=== PATIENT | female | born 1960 | race Caucasian/White ===

== ENCOUNTER → 2020-01-18 08:15 | Outpatient (CLI) | payer OTHER, SELFPAY ==
--- NOTE | ~2020-01-18 | MM_ITS ---
EXAMINATION: MM screening pooja BI w ingrid HISTORY: Screening mammogram TECHNIQUE: Craniocaudal and mediolateral oblique 3-D tomosynthesis images were obtained and synthetic 2-D images were generated. CAD analysis was submitted and interpreted. COMPARISON: No prior mammogram is available for comparison at this institution. BREAST PARENCHYMAL COMPOSITION: There are scattered areas of fibroglandular density. FINDINGS: There is no evidence of suspicious mass, calcification, or architectural distortion to sugg est malignancy in either breast. There has been no suspicious interval change. IMPRESSION: 1. No mammographic evidence of malignancy. 2. Recommend routine screening mammography in one year. BI-RADS Category 1: Negative Reviewed, dictated and finalized at location A.
--- NOTE | ~2020-01-18 | DEXA_ITS ---
Bone Density Report Name: Michelle Juarez Age: 59 Sex: Female Ethnicity: White Date of : 1960 Indication: postmenopausal; screening for osteoporosis; Referring Provider: Nathan, Lori Study: Bone densitometry was performed. Exam Date: January 18, 2020 Accession number: [id number] Bone Density: Region BMD T-score Z-score Classification AP Spine (L1-L4) 0.946 -0.9 0.4 Normal Femoral Neck (Left) 0.683 -1.5 -0.3 Osteopenia Total Hip (Left) 0.834 -0.9 0.0 Normal Femoral Neck (Right) 0.681 -1.5 -0.3 Osteopenia Total Hip (Right) 0.793 -1.2 -0.4 Osteopenia Total Hip Mean 0.814 -1.1 -0.2 Osteopenia World Health Organization criteria for BMD impression classify patients as: Normal (T-score at or above -1.0), Osteopenia (T-score between -1.0 and -2.5), or Osteoporosis (T-score at or below -2.5). 10-year Fracture Risk(1): Major Osteoporotic Fracture 7.4% Hip Fracture 0.6% Reported Risk Factors: [place] (), Neck BMD=0.681, BMI=29.6 (1) FRAX(R) Version 3.08. Fracture probability calculated for an untreated patient. Fracture probability may be lower if the patient has received treatment. Clinical Information Provided by Patient: Has used the following medications: Vitamin D, Calcium Patient maximum height was 62.4 Menopause Age: 55 No regular weight bearing exercise Does not regularly consume dairy products Drinks caffeinated beverages Onset of menses at age 16 Number of children 2 Impression: The patient has low bone mass, based on the Left Femoral Neck T-score. The patient has an estimated ten-year risk of hip fracture of 0.6% and an estimated ten-year risk of major fracture of 7.4%, based on the WHO FRAX algorithm. Discussion: BONE DENSITY IS LOW AT ONE OR MORE SKELETAL SITES. This patient's lowest T-score is low at one or more skeletal sites. It meets the World Health Organization's (WHO) criteria for ?low bone mass? (T-score between -1.0 and -2.5). The patient's 10-year risk of fracture as calculated by FRAX is less than the threshold where pharmacological therapy is recommended by the National Osteoporosis Foundation (NOF). However, all treatment decisions require clinical judgment and consideration of individual patient factors, including patient preferences, comorbidities, previous drug use, risk factors not captured in the FRAX model (e.g., frailty, falls, vitamin D deficiency, increased bone turnover, interval significant decline in bone density) and possible under or overestimation of fracture risk by FRAX. The patient should follow a healthful lifestyle (good nutrition with adequate calcium and vitamin D, and appropriate weight-bearing exercise). Follow-Up: Consider repeating this study in 2 to 3 years to reassess this patient's status, or sooner if there is some new clinic
== END ==
PROVIDERS: Visit Provider Nurse Practitioner
DX: Z12.31 Encounter for screening mammogram for malignant neoplasm of breast (principal); Z78.0 Asymptomatic menopausal state; M85.89 Other specified disorders of bone density and structure, multiple sites
CPT/HCPCS: 77063; 77067; 77080

== ENCOUNTER 2020-01-29 08:24 | Emergency (ER) | payer OTHER, SELFPAY ==
[2020-01-29 08:33] VITALS: BP 114/69; PULSE 73; RESP 20; TEMP 36.5; O2SAT 100
--- NOTE | 2020-01-29 08:52 | ED.FEMALEGU ---
HPI - Female Genitourinary General Chief complaint: Urogenital-Female Stated complaint: blood in urine/pressure/burning Source: patient and RN notes reviewed Mode of arrival: ambulatory Limitations: no limitations History of Present Illness HPI Narrative: This is a 59 years old female presents to the office for an evaluation of possible UTI since yesterday. Symptoms began with urinary discomfort/pressure then it gets worse over night with urinary pain and blood tinged. Denies urinary discharge. NO treatment prior to arrival. Symptoms reminiscent her previous UTI about a year ago. Related Data Allergies Allergy/AdvReac Type Severity Reaction Status Date / Time venom-honey bee Allergy Unknown Verified 05/10/14 15:48 ibuprofen AdvReac Unknown Verified 02/18/15 13:02 Review of Systems Review of Systems: Narrative: CONSTITUTIONAL: Denies fever or feeling ill ENT: Denies congestion CARDIOVASCULAR: Denies chest pain RESPIRATORY: Denies cough GASTROINTESTINAL: Denies abdominal pain, nausea, vomiting GENITOURINARY: Reports urinary pain/pressure, blood tinged when she wipes SKIN: Denies rash MUSCULOSKELETAL: Denies acute back pain NEUROLOGIC: Denies lightheaded PMFSH Surgical History Surgical History H/O dilation and curettage Hx of gastric bypass Comments At time of signature, I agree with nursing past medical, surgical, social and family history. There is no relevant family history pertinent to the presenting complaint. Exam Narrative: Exam Narrative: GENERAL: This is a well-nourished, well-developed patient, in no apparent distress. CARDIOVASCULAR: Regular rate and rhythm without murmurs, gallops, or rubs. RESPIRATORY: Clear to auscultation. Breath sounds equal bilaterally. No wheezes, rales, or rhonchi. GASTROINTESTINAL: Abdomen soft, non-tender, nondistended. Bowel sounds are active. No hepato-splenomegaly, or palpable masses. No guarding. SKIN: warm, intact with no suspicious lesions or rash, good texture and turgor. NEURO: awake, alert, and oriented to person, place and time. There were no obvious focal neurologic abnormalities. Steady gait BACK: No flank tenderness. Marley Coma Scale Eye Opening: Spontaneous 4 [place] Coma Scale Motor: Obeys Commands 6 [place] Coma Scale Verbal: Oriented 5 Course Vital Signs Vital signs: Vital Signs Temperature 97.7 F 01/29/20 08:33 Pulse Rate 73 01/29/20 08:33 Respiratory Rate 20 01/29/20 08:33 Blood Pressure 114/69 01/29/20 08:33 Pulse Oximetry 100 01/29/20 08:33 Temperature 97.7 F 01/29/20 08:33 Pulse Rate 73 01/29/20 08:33 Respiratory Rate 20 01/29/20 08:33 Blood Pressure 114/69 01/29/20 08:33 Pulse Oximetry 100 01/29/20 08:33 MDM - Female Genitourinary MDM Narrative Medical decision making narrative: Discharge instructions reviewed with patient, as well as provided in writing per nursing staff. The instructions also include specific and strict return/GO TO THE ER as well as f/u information. All questions have been answered, and the patient deny any further questions with discharge and discharge plan. Differential Diagnosis Differential diagnosis: Likely urinary tract infection, bacterial vaginosis, cervicitis, ovarian cyst, vaginitis, cystitis and dysmenorrhea Medical Records Attestation: I reviewed the patient's medical records. Lab Data Attestation: I reviewed the patient's lab results. Labs: Urine Glucose Negative Reference Range: Negative Urine Bilirubin Negative Reference Range: Negative Urine Ketone Negative Reference Range: Negative Urine Specific [place] 1.020 Reference Range:1.001-1.035 Urine Blood 2+ Reference Range: Negative * * Urine pH 7.5 Reference Range: 5
== END 2020-01-29 09:08 | disposition home or self-care (01) ==
PROVIDERS: Emergency Provider Nurse Practitioner
DX: R30.0 Dysuria (principal); R31.9 Hematuria, unspecified; Z98.84 Bariatric surgery status
CPT/HCPCS: 81003; 87077; 87086; 87088; 87186; 99213; G0463

== ENCOUNTER 2020-02-27 08:04 | Emergency (ER) | payer OTHER, SELFPAY ==
[2020-02-27 08:22] VITALS: BP 130/67; PULSE 77; RESP 20; TEMP 36.8; O2SAT 96
--- NOTE | 2020-02-27 08:22 | ED.SKABFB ---
HPI - Skin/Abscess/Foreign Bdy General Chief complaint: Skin/Abscess/Foreign Body Stated complaint: rash on arms and face Time Seen by Provider: 02/27/20 08:30 Source: patient and RN notes reviewed Mode of arrival: ambulatory Limitations: no limitations History of Present Illness HPI narrative: 59-year-old female presents with concern for itchy rash on her arms that has spread to her face. 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 She reports similar rash last year. She reports she has been using triamcinolone cream with no relief. She reports she daily Zyrtec with no relief. complaint: rash Related Data Allergies Allergy/AdvReac Type Severity Reaction Status Date / Time venom-honey bee Allergy Unknown Unknown Verified 02/27/20 08:31 ibuprofen AdvReac Unknown Other Verified 02/27/20 08:31 Review of Systems Review of Systems: Narrative: CONSTITUTIONAL: Denies malaise, chills, sweats, or fever. EYES: Denies visual changes, redness ENT: Denies rhinorrhea, congestion, sinus pain, otalgia or sore throat. CARDIOVASCULAR: Denies chest pain, palpitations RESPIRATORY: Denies cough or dyspnea. GASTROINTESTINAL: Denies abdominal pain, nausea, vomiting, diarrhea SKIN: Reports itchy, raised rash on arms and face MUSCULOSKELETAL: Denies myalgia. NEUROLOGIC: Denies headache. All systems reviewed & are unremarkable except as noted in HPI and below PMFSH Comments At time of signature, agree with nursing past medical, surgical, social and family history. There is no relevant family history pertinent to the presenting complaint Exam Narrative: Exam Narrative: GENERAL: Well-appearing, well-nourished, and in no acute distress. HEAD: Normocephalic, atraumatic. EYES: PERRLA, conjunctivae clear ENT: Nares clear. Mucous membranes moist. Oropharynx without edema, erythema or lesions. Tonsils not enlarged and without exudate. NECK: Supple. CHEST: No respiratory distress. Clear to auscultation. No bony deformities, no asymmetry. Speaks in full sentences. HEART: Regular rate and rhythm. No murmur heard. EXTREMITIES: Grossly normal range of motion. No edema. SKIN: Warm, dry. Fine pink papular rash noted to bilateral forearms, skin colored papules noted to bilateral cheeks, no other rash noted. NEURO: Alert and oriented x3. PSYCH: Normal mood and affect Course Course Emergency Course: Patient is aware of diagnosis, understands and agrees to treatment plan. Anticipatory guidance given. Patient agrees to follow-up as directed and is aware of reasons to seek care at the emergency department. Portions of this record may have been created with voice recognition software Vital Signs Vital signs: Vital Signs Temperature 98.2 F 02/27/20 08:22 Pulse Rate 77 02/27/20 08:22 Respiratory Rate 20 02/27/20 08:22 Blood Pressure 130/67 02/27/20 08:22 Pulse Oximetry 96 02/27/20 08:22 Temperature 98.2 F 02/27/20 08:22 Pulse Rate 77 02/27/20 08:22 Respiratory Rate 20 02/27/20 08:22 Blood Pressure 130/67 02/27/20 08:22 Pulse Oximetry 96 02/27/20 08:22 Reviewed. Patient has been instructed to follow up with her primary care provider within the next week regarding her elevated blood pressure today. MDM - Skin/Abscess/Foreign Bdy MDM Narrative Medical decision making narrative: Does not appear at this time to be erythema multiforme, bullous, SJS, TEN; no evidence at this time to suggest RMSF, endocarditis or Lyme disease; patient looks well, nontoxic and is tolerating oral intake; no neurologic signs or symptoms; no headache, photophobia or neck pain; afebrile; appropriate for initial outpatient treatment; discussed the importance of follow-up, patient agrees; question, viral exanthema, contact dermatitis, allergic dermatitis, eczema, urticaria, drug reaction. No soft palate or uvula edema, no tongue, lip edema or other mucosal involvement, no respiratory compromi
== END 2020-02-27 08:43 | disposition home or self-care (01) ==
PROVIDERS: Emergency Provider Nurse Practitioner
DX: R21 Rash and other nonspecific skin eruption (principal); Z98.84 Bariatric surgery status; R03.0 Elevated blood-pressure reading, without diagnosis of hypertension
CPT/HCPCS: 99213; G0463

== ENCOUNTER 2020-10-29 14:39 | Emergency (ER) | payer OTHER, SELFPAY ==
[2020-10-29 14:54] VITALS: BP 124/74; PULSE 72; RESP 16; TEMP 36.5; O2SAT 100
--- NOTE | 2020-10-29 15:18 | ED.GENADULT ---
HPI - General Adult General Chief complaint: Skin/Abscess/Foreign Body Stated complaint: rash allover Time Seen by Provider: 10/29/20 15:18 Source: patient Mode of arrival: ambulatory Limitations: no limitations History of Present Illness HPI narrative: 51-year-old female patient presents to the [facility] with complaints of a rash for the past week. Patient states it mostly is on her neck but noticed that she has had some itching to bilateral legs and arms. Patient states she has tried Benadryl along with lotion but continues to have a rash. Denies any new soaps, lotions or detergents. Denies any chest pain, shortness of breath. Related Data Allergies Allergy/AdvReac Type Severity Reaction Status Date / Time venom-honey bee Allergy Unknown Unknown Verified 10/29/20 15:08 ibuprofen AdvReac Unknown Other Verified 02/27/20 08:31 Review of Systems Review of Systems: Narrative: CONSTITUTIONAL: Denies fever, chills, or sweats. EYES: Denies visual changes, redness, or discharge. ENT: Denies rhinorrhea, congestion, sore throat, or otalgia. CARDIOVASCULAR: Denies chest pain, palpitations, or edema. RESPIRATORY: Denies cough or dyspnea. GASTROINTESTINAL: Denies abdominal pain, nausea, vomiting, or diarrhea. GENITOURINARY: Denies dysuria or hematuria. SKIN: Positive rash with itching to neck and chest, bilateral legs and bilateral arms x1 week MUSCULOSKELETAL: Denies back pain, joint pain, or myalgia. NEUROLOGIC: Denies headache, numbness, or weakness. PSYCHIATRIC: Denies anxiety or depression. PMFSH Surgical History Surgical History H/O dilation and curettage Hx of gastric bypass Comments At the time of my signature I agree with nursing past medical history, surgical, social, and family history. There is no relevant family history pertinent to the presenting complaint. Exam Narrative: Exam Narrative: GENERAL: Well-appearing, well-nourished, and in no acute distress. HEAD: Normocephalic, atraumatic. EYES: PERRLA and EOMI. ENT: Nares clear, no rhinorrhea or epistaxis. Mucous membranes moist. NECK: Supple. No lymphadenopathy CHEST: Clear to auscultation. No respiratory distress. HEART: Regular rate and rhythm. No murmur heard. Normal peripheral pulses. ABDOMEN: Soft, nontender, nondistended, normal active bowel sounds. EXTREMITIES: Normal range of motion. No edema. SKIN: Warm, dry, patient does have a erythemic rash noted to the chest the next area but no obvious warmth present. No obvious areas of discharge no obvious raised areas. Patient has rash to bilateral upper lower extremities with flat macules that are very small with erythema but no no base noted. NEURO: No focal deficits. Alert and oriented x3. Course Vital Signs Vital signs: Vital Signs Temperature 36.5 C 10/29/20 14:54 Pulse Rate 72 10/29/20 14:54 Respiratory Rate 16 10/29/20 14:54 Blood Pressure 124/74 10/29/20 14:54 Pulse Oximetry 100 10/29/20 14:54 Temperature 36.5 C 10/29/20 14:54 Pulse Rate 72 10/29/20 14:54 Respiratory Rate 16 10/29/20 14:54 Blood Pressure 124/74 10/29/20 14:54 Pulse Oximetry 100 10/29/20 14:54 Vital signs reviewed Medical Decision Making Differential Diagnosis Differential Diagnosis: Differential diagnosis: Contact dermatitis, poison kai, poison sumac, psoriasis, eczema, allergic reaction, drug reaction, scabies, tinea syphilis, lung disease, viral exanthema, pityriasis, erythema multiforme. Discussed with patient that since she has had this for a week and has tried Benadryl without much relief we will go ahead and try her put her on a taper of steroids to see if this helps with the rash. Patient verbalized understanding denies any other questions or concerns at this time. Vital Signs Vital Signs: Vital Signs Temperature 36.5 C 10/29/20 14:54 Pulse Rate 72 10/29/20 14:54 Respiratory Rate 16 10/29/20 14:54 Blood Pressure 124/74 0
== END 2020-10-29 15:40 | disposition home or self-care (01) ==
PROVIDERS: Emergency Provider Nurse Practitioner Family
DX: R21 Rash and other nonspecific skin eruption (principal); Z98.84 Bariatric surgery status
CPT/HCPCS: 99213; G0463

== ENCOUNTER → 2021-04-02 10:32 | Outpatient (CLI) | payer OTHER, SELFPAY ==
--- NOTE | ~2021-04-02 | MM_ITS ---
EXAMINATION: MM screening pooja BI w ingrid HISTORY: Screening mammogram TECHNIQUE: Craniocaudal and mediolateral oblique 3-D tomosynthesis images were obtained and synthetic 2-D images were generated. CAD analysis was submitted and interpreted. COMPARISON: 01/18/2020 BREAST PARENCHYMAL COMPOSITION: There are scattered areas of fibroglandular density. FINDINGS: There is no evidence of suspicious mass, calcification, or architectural distortion to sugg est malignancy in either breast. There has been no suspicious interval change. IMPRESSION: 1. No mammographic evidence of malignancy. 2. Recommend routine screening mammography in one year. BI-RADS Category 1: Negative Reviewed, dictated and finalized at location A.
== END ==
PROVIDERS: Visit Provider Nurse Practitioner
DX: Z12.31 Encounter for screening mammogram for malignant neoplasm of breast (principal)
CPT/HCPCS: 77063; 77067

== ENCOUNTER 2021-09-11 08:01 | Outpatient (CLI) | payer OTHER, SELFPAY ==
[2021-09-11 08:25] LABS: Hematocrit 43.7 % (37.0-47.0); Hemoglobin 14.2 g/dL (12.0-15.0); Mean Corpuscular HGB Conc 32.5 g/dl (32-36); Mean Corpuscular Hemoglobin 27.8 pg (26-34); Mean Corpuscular Volume 85.7 fl (80-100); Mean Platelet Volume 10.5 fl (7.4-10.4); Platelet Count Result 211 k/mm3 (150-375); White Blood Count 4.1 K/mm3 (4.5-10.0)
[2021-09-11 08:39] LABS: Albumin Level 4.1 g/dL (3.5-5.1); Anion Gap 4 mmol/L (8-16); Blood Urea Nitrogen 14 mg/dL (7-17); Calcium 9.5 mg/dL (8.4-10.2); Carbon Dioxide 31 mmol/L (22-30); Chloride 102 mmol/L (98-107); Estimated Glomerular Filt Rate > 60; Glucose 96 mg/dL (65-110); Potassium 4.4 mmol/L (3.4-5.0); Sodium 137 mmol/L (137-145)
[2021-09-11 08:46] LABS: Iron 182 ug/dL (37-170)
[2021-09-11 08:47] LABS: Prealbumin 22.2 mg/dL (17.6-36.0)
[2021-09-18 10:16] LABS: Vitamin B1 15 nmol/L (8-30)
== END 2021-09-11 08:02 | disposition home or self-care (01) ==
LOC: ANHLAB 08:03
PROVIDERS: Visit Provider Surgery Plastic and Reconstructive Surgery
DX: Z01.818 Encounter for other preprocedural examination (principal)
CPT/HCPCS: 36415; 80048; 82040; 83540; 84134; 84425; 85027

== ENCOUNTER 2021-10-11 09:26 | Outpatient (CLI) | payer OTHER, SELFPAY ==
--- NOTE | 2021-10-11 10:00 | ECG_ITS ---
Measurements Intervals [place] Rate: 59 P: 69 NH: 175 QRS: 40 QRSD: 85 T: 71 QT: 382 QTc: 378 Interpretive Statements SINUS BRADYCARDIA BASELINE ARTIFACT- I, II, III, AVR, AVL, AVF BORDERLINE ECG Electronically Signed On 10-11-2021 16:49:49 [employer] by Franco Campoverde D.O.
== END 2021-10-11 09:27 | disposition home or self-care (01) ==
LOC: ANHSURGERY 09:30
PROVIDERS: PCP Internal Medicine; Visit Provider Surgery Plastic and Reconstructive Surgery
DX: Z41.9 Encounter for procedure for purposes other than remedying health state, unspecified (principal); Z01.818 Encounter for other preprocedural examination; R94.31 Abnormal electrocardiogram [ECG] [EKG]
CPT/HCPCS: 93005

== ENCOUNTER 2021-10-12 00:14 | Day surgery (SDC) | payer OTHER, SELFPAY ==
[2021-10-04 15:08] VITALS: BMI 28.3
--- NOTE | 2021-10-04 15:23 | PC.NURSE ---
Report to the Outpatient Waiting Room, entrance under the green pavilion located off [facility], at time 8:30 on date 10/12/21. OR Time: 10:30. - You and your visitor will be asked a series of questions to screen for COVID 19 for your protection. - A mask is required within the hospital. - Only one visitor is allowed at this time. Patient visitors will be guided where to wait when not with patient. Preoperative COVID Testing Requirements: No COVID Test needed if: (proof is required; if not received patient will have Rapid Test prior to entry) - Patient has received COVID Vaccine at least 14 days prior to procedure date or - Patient has positive COVID test result within last 90 days of surgery date. COVID Test needed if above criteria is not met If not COVID vaccinated a COVID test must be conducted within 72 hours of surgery and patient is asked to isolate self from time of testing until procedure. You will go to the [facility] for your COVID testing. The [facility] site is located at the corner of [address] [facility]. You will only be called if COVID results are positive and your surgeon may reschedule your elective surgery date. Patients may have clear liquids (water, carbonated beverages, clear teas, apple juice) until 3 hours prior to surgery with a maximum of 20 ounces. - No food from midnight until time of surgery - Infants may have breast milk until 4 hours before surgery, infant formula 6 hours prior to surgery. - Children will be allowed to drink immediately following surgery. If applicable, please bring a bottle or sippy cup to assist with drinking. Juice, water, soda, and popsicles are readily available. For infants on formula, please bring formula the day of surgery. Pacifiers are allowed. Take the following medications with a SIP of water the morning of surgery: NONE Medications to discontinue per physician: VITAMINS/SUPPLEMENTS Date to take last dose: 10/08/21 Please no make-up, nail bulgarian, hairspray, perfume, deodorant, or body powder the day of surgery. No jewelry (including any body piercings) or valuables the day of surgery, leave them at home. Please take a shower or bath the night before, or the morning of, surgery with an antibacterial soap. Wear comfortable, loose fitting clothing. Children are encouraged to wear pajamas. - Jewelry must be removed prior to entering the operating room. Rings and piercings that are not removed may be cut off. - The hospital will not accept responsibility for valuables. - Please leave all valuables, including medications, at home the day of surgery. If you are going home after surgery, a licensed local flatbed driver must drive you home. - NO public transportation without another adult. - We recommend that an adult stay with you for 24 hours following discharge. - We also recommend that you do not drive, make important decision, drink alcoholic beverages, or take any drugs that were not prescribed by your health care provider for at least 24 hours after your discharge time. For Pediatric surgeries, we recommend two adults accompany the child home (only one inside the building at this time). Follow any additional instructions given to you from your surgeon. Telephone instructions given to GOPI RUTH and asked if any additional questions and then verbalized understanding. Patient advised to call surgeon office or pre surgery nurse liaison [phone] if any additional questions.
[2021-10-12] VITALS (9 sets, daily range): BP systolic 139–176; BP diastolic 69–93; PULSE 59–68; RESP 9–18; TEMP 36.4–36.6; O2SAT 100
[2021-10-12] MEDS: LACTATED RINGERS 1,000 ML 30 ML IV CONT ×3 (09:15→15:39)
[2021-10-12 09:17] LABS: Urine Cotinine NEGATIVE
--- NOTE | 2021-10-12 09:38 | WPDANESEPPF ---
Anes - Initial Pre Proc Eval Procedure: Operation Date: 10/12/21 10:30 Proposed Procedures p Bilateral Brachioplasty, - Mumtaz Anderson MD s Bilateral Medial Thigh Lift with Bilateral Lateral Thigh Liposuction - Mumtaz Anderson MD Date/Time: 10/12/21 09:38 Surgeon: Mumtaz Anderson MD Pre Op Diagnosis: skin laxity Patient Data Age: 60 Gender: F Height: 1.57 m Weight: 70.31 kg Allergies Allergy/AdvReac Type Severity Reaction Status Date / Time venom-honey bee Allergy Unknown Unknown Verified 10/04/21 15:04 adhesive AdvReac Mild Itching Verified 10/04/21 15:04 ibuprofen AdvReac Unknown Other Verified 10/04/21 15:04 Home Medications Medication Instructions Recorded Confirmed Type docusate sodium 100 mg capsule 100 mg PO DAILY #14 cap 09/27/21 10/04/21 Rx ondansetron HCl 4 mg tablet 4 mg PO Q8H #21 tablet 09/27/21 10/04/21 Rx oxycodone-acetaminophen 5 mg-325 1 tablet PO Q6H PRN #30 tablet 09/29/21 10/04/21 Rx mg tablet cholecalciferol (vitamin D3) 125 mcg PO DAILY 10/04/21 10/04/21 History [Vitamin D3] ferrous sulfate [Iron (ferrous 325 mg PO DAILY 10/04/21 10/04/21 History sulfate)] Laboratory Tests 10/12/21 08:53 Cotinine Negative Patient hx anesthesia problems: none Family hx anesthesia problems: none Results Review: All pre-operative results and documents have been reviewed as part of the pre-operative evaluation. [facility] Surgical History Surgical History H/O dilation and curettage Hx of gastric bypass Social History Social History Smoking status: Unknown if ever smoked Alcohol intake: never Alcohol use details: 1-2 TIMES/YEAR Substance use: never Substance use type: does not use Living arrangements: with family Spiritual care concerns: No Anes - Eval Final PreProcedure Day of Procedure 10/12/21 09:38 Patient weight: overweight Heart: regular rate and rhythm Lungs: clear to auscultation Airway: Mallampati scale class II Neurological: alert and oriented Last oral intake: >/= 8 hours ASA classification: II Emergent: no Anesthetic plan: proceed Anesthesia type and monitoring: general ETT and standard monitoring Results Review: All pre-operative results and documents have been reviewed as part of the pre-operative evaluation. Informed Consent: The patient's anesthetic plan and its attendant risks and benefits were discussed with the patient/family/POA. Questions were solicited and answers provided to the satisfaction of the patient/family/POA.
--- NOTE | 2021-10-12 09:46 | WPDHPUPDATE1 ---
History and Physical Update Update Date/Time: 10/12/21 09:46 History and Physical has been reviewed, including an updated exam of the patient. There are NO changes in the patient's condition. Risks, benefits, and alternatives have been discussed and questions answered. Patient agrees to proceed with procedure.
[2021-10-12] MEDS: TRANEXAMIC ACID 1,000MG/ISO100 1,000 MG/100 ML BAG 200 MG IVPB (10:00)
[2021-10-12] MEDS: SCOPOLAMINE 1.5 MG PATCH TRANSDERM (10:15)
--- NOTE | 2021-10-12 10:18 | P.OP_ITS ---
Procedure Note - Detailed Date of Procedure 10/12/21 Pre-op Diagnosis skin laxity Post-op Diagnosis same Procedure Performed 1. Bilateral brachioplasty 2. Bilateral medial thigh lift 3. Bilateral lateral thigh (saddlebag) suction lipectomy Surgeon Mumtaz Anderson MD Anesthesia general Findings 1275 suction lipectomy lateral thighs (total bilateral) 1500 suction lipectomy thighs (total bilateral) 400 suction lipectomy arms (total bilateral) Description of Procedure Preoperatively the risks, benefits, alternatives were discussed in extensive detail. I wanted her to be very realistic about the risks involved as well as expectations. Made sure answered all of her questions to her satisfaction. Consent was obtained. She was marked in the preoperative holding area with her verification. She was taken to the operating room placed supine on the operating room table. Anesthesia was provided by anesthesiology and she was prepped and draped in the standard sterile fashion. Surgical time-out was taken. First proceeded with the thighs. Stab incicions were made and I tumesced the planned suction lipectomy site as well as along the planned resection site for medial thigh lift. Once adequate time for hemostasis I proceeded with suction lipectomy based on S.A.F.E. technique to the saddlebag region with a 5mm basket cannula.. I then proceeded the medial thigh lift. I completely de-fatted the planned resection site and then proceeded with strip avulsion technique from proximal to distal in a close as you go fashion. I closed with 2-0 Stratafix followed by 3-0 Stratafix in a running subcuticular 4- 0 Monocryl and steri strips. I then proceed to brachioplasty. Stab incicions were made and I tumesced. Suction lipectomy was utilized I completely de-fatted the planned resection site and then proceeded with strip avulsion technique from proximal to distal in a close as you go fashion. I closed with 2-0 Stratafix followed by 3-0 Stratafix in a running subcuticular 4-0 Monocryl and steri strips. She was awoke and taken to the PACU without difficulty. All instrument sponge counts were correct at the end of the case. Estimated Blood Loss 30 Drains No Packing No Pathology none sent Complications No immediate complications Condition stable Disposition PACU
[2021-10-12] MEDS: LACTATED RINGERS IRRIG 1,000 ML, LIDOCAINE HCL 1% LOCAL INJ 50 ML, EPINEPHrine HCL INJ ... INFILTRATE (10:30)
[2021-10-12] MEDS: ceFAZolin 2 GM/D5W 50 ML 2 GM/50 ML BAG IVPB (10:30)
[2021-10-12] MEDS: ceFAZolin SODIUM 1 GM VIAL IV PUSH (14:23)
[2021-10-12] MEDS: ONDANSETRON INJ 4 MG/2 ML VIAL IV PUSH (16:33)
[2021-10-12] MEDS: diphenhydrAMINE HCl INJ 50 MG/ML VIAL 25 MG IV PUSH (16:46)
== END 2021-10-12 17:57 | disposition home or self-care (01) ==
PROVIDERS: PCP Internal Medicine; Visit Provider Surgery Plastic and Reconstructive Surgery
PROC: (CPT 15836; principal; 2021-10-12 10:30)
PROC: (CPT 15832; 2021-10-12 10:30)
DX: Z41.1 Encounter for cosmetic surgery (principal); L57.4 Cutis laxa senilis; Z98.84 Bariatric surgery status; Z79.899 Other long term (current) drug therapy
CPT/HCPCS: 15879; 15836; 15832; 15878; 80307; A9270; J0171; J0690; J1100; J1170; J1200; J2250; J2405; J2704; J3010; J7120

== ENCOUNTER → 2022-10-31 15:01 | Outpatient (CLI) | payer OTHER, SELFPAY ==
--- NOTE | ~2022-10-31 | US_ITS ---
Thyroid ultrasound. Clinical History: Enlarged thyroid gland COMPARISON: 12/03/2018 Findings: Real-time sonography of the thyroid gland was performed. The right lobe measures 5.6 x 2.3 x 1.9 cm. The left lobe measures 5.8 x 2.0 x 1.4 cm. The isthmus is 5 mm in AP diameter. There is a 2.6 x 1.5 x 1.5 cm isoechoic solid nodule at the right mid to lower pole. There is a 1.8 x 1.3 x 1.8 cm solid nodule at the left mid to lower pole, somewhat heterogeneous, largely hyperechoic . There is an additional 1.3 x 1.5 cm left lower pole nodule which is largely cystic in nature. There is a 0.5 cm nodule, hypoechoic, in the isthmus on the left side. Impression: Bilateral thyroid nodules, which overall are probably without significant interval change since prior exam. Stability over this time interval is compatible with benignity. Reviewed, dictated and finalized at [facility]. CUTTER Impression: Bilateral thyroid nodules, which overall are probably without significant inter [place] change since prior exam. Stability over this time interval is compatible wi th benignity.
== END ==
PROVIDERS: PCP Obstetrics & Gynecology Gynecology; Visit Provider Obstetrics & Gynecology Gynecology
DX: E04.2 Nontoxic multinodular goiter (principal)
CPT/HCPCS: 76536

== ENCOUNTER 2023-11-16 07:38 | Outpatient (CLI) | payer OTHER, SELFPAY ==
[2023-11-16 19:48] LABS: Free T4 Free Thyroxine 1.23 ng/mL (0.78-2.19); Vitamin D 25 Hydroxy 68.4 ng/mL
== END 2023-11-16 07:39 | disposition home or self-care (01) ==
LOC: ANHASCLAB 07:40
PROVIDERS: PCP Obstetrics & Gynecology Gynecology; Visit Provider Nurse Practitioner
DX: E55.9 Vitamin D deficiency, unspecified (principal); E07.9 Disorder of thyroid, unspecified
CPT/HCPCS: 36415; 82306; 82607; 84439; 84443

== ENCOUNTER 2024-11-25 12:48 | Outpatient (CLI) | payer OTHER, SELFPAY ==
--- NOTE | ~2024-11-25 | MM_ITS ---
EXAMINATION: MM screening pooja BI w ingrid HISTORY: Screening TECHNIQUE: Craniocaudal and mediolateral oblique 3-D tomosynthesis images were obtained and synthetic 2-D images were generated. CAD analysis was submitted and interpreted. COMPARISON: Comparison to multiple prior studies sequentially, with oldest reviewed study dated 01/2020. BREAST PARENCHYMAL COMPOSITION: Not dense: There are scattered areas of fibroglandular density. FINDINGS: There are developing asymmetries in the upper inner quadrant of the right breast posteriorl y. Left breast is stable without evidence for malignancy. IMPRESSION: 1. Developing right breast asymmetries. 2. Additional mammographic views and possible breast ultrasound are recommended. BI-RADS Category 0: Incomplete: Needs additional imaging evaluation. Reviewed, dictated and finalized at location B. TRICAL LOGGING ENGINEER IMPRESSION: 1. Developing right breast asymmetries. 2. Additional mammographic views and possible breast ultrasound are recommended . BI-RADS Category 0: Incomplete: Needs additional imaging evaluation.
--- NOTE | ~2024-11-25 | DEXA_ITS ---
Bone Density Report Name: GOPI RUTH Age: 64 Sex: Female Ethnicity: White Date of : 1960 Indication: postmenopausal; screening for osteoporosis; Referring Provider: Marnie Cowan Study: Bone densitometry was performed. Exam Date: November 25, 2024 Accession number: [id number] Bone Density: Region BMD T-score Z-score Classification AP Spine(L1-L4) 0.906 -1.3 0.3 Osteopenia Femoral Neck (Left) 0.684 -1.5 -0.1 Osteopenia Total Hip (Left) 0.820 -1.0 0.1 Normal Femoral Neck (Right) 0.698 -1.4 0.1 Osteopenia Total Hip (Right) 0.828 -0.9 0.2 Normal Femoral Neck Mean 0.691 -1.4 0.0 Osteopenia Total Hip Mean 0.824 -1.0 0.1 Normal World Health Organization criteria for BMD impression classify patients as: Normal (T-score at or above -1.0), Osteopenia (T-score between -1.0 and -2.5), or Osteoporosis (T-score at or below -2.5). 10-year Fracture Risk(1): Major Osteoporotic Fracture 8.1% Hip Fracture 0.7% Reported Risk Factors: [place] (), Neck BMD=0.684, BMI=30.5 (1) FRAX(R) Version 3.08. Fracture probability calculated for an untreated patient. Fracture probability may be lower if the patient has received treatment. Clinical Information Provided by Patient: Has used the following medications: Vitamin D Patient maximum height was 62 Menopause Age: 51 No regular weight bearing exercise Does not regularly consume dairy products Drinks caffeinated beverages Onset of menses at age 16 Number of children 2 Impression: The patient has low bone mass, based on the Left Femoral Neck T-score. Discussion: BONE DENSITY IS LOW AT ONE OR MORE SKELETAL SITES. This patient's lowest T-score is low at one or more skeletal sites. It meets the World Health Organization's (WHO) criteria for ?low bone mass? (T-score between -1.0 and -2.5). The patient's 10-year risk of fracture as calculated by FRAX is less than the threshold where pharmacological therapy is recommended by the National Osteoporosis Foundation (NOF). However, all treatment decisions require clinical judgment and consideration of individual patient factors, including patient preferences, comorbidities, previous drug use, risk factors not captured in the FRAX model (e.g., frailty, falls, vitamin D deficiency, increased bone turnover, interval significant decline in bone density) and possible under or overestimation of fracture risk by FRAX. The patient should follow a healthful lifestyle (good nutrition with adequate calcium and vitamin D, and appropriate weight-bearing exercise). Follow-Up: Consider repeating this study in 2 to 3 years to reassess this patient's status, or sooner if there is some new clinical indication. Reported by: TANIKA on 11/25/2024 1:18:00 PM. Reviewed, dictated and finalized at location A.
--- OUTSIDE RECORDS SUMMARY | 2024-11-25 13:02 | XMS_ITS | Clinical Summary ---
Author Organization [facility] Address [address] [place] [id number] Care Team Providers Care Pediatric Genetic Counselor Name Role Phone No, Physician Primary Care Provider [phone] Allergies Active Allergy Reactions Criticality Noted Date Comments Venom-Honey Bee Venom-Wasp Swelling Medium 05/04/2021 Medications ergocalciferol (VITAMIN D) 50,000 unit capsule ORAL 1 CAPSULE TWICE A WEEKLY WITH A LARGE MEAL 4 11/29/2018 Active EPINEPHrine syringe (ADRENALIN) 0.1 mg/mL injection Acti ve multivitamin capsule Take 1 capsule by mouth daily Active zinc 50 mg tablet Take by mouth Active vitamin F72-mxqha acid 0.5-1 mg tablet Take by mouth daily Active ascorbic acid (ascorbic acid with rehan hips) 500 mg tablet,chewable Acti ve calcium acetate,phospha t bind, (PHOSLO) 667 mg tablet Take 1,334 mg by mouth 3 (three) times a day with meals Active Active Problems Problem Noted Date Diagnosed Date 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 04/16/2020 Assessment & Plan (02/12/2021 6:20 PM CDT): S/p I 131 Patterson treatment in April 2020 Reviewed and discussed recent TFT 02/01 - WNL Pt clinically euthyroid Recheck TFT in 6 months Follow up in 6 months Assessment & Plan (08/07/2020 10:52 AM CDT): S/p I 131 Patterson treatment in April 2020 Reviewed and discussed recent TFT, TSH slowly improving Pt clinically euthyroid continue to monitor TFT every 3 months Follow up in 6 months Assessment & Plan (04/16/2020 12:29 PM CDT): Discuss patient lab results, nuclear medicine thyroid uptake and scan results Also patient thyroid ultrasound results and DEXA scan results Patient to have toxic nodular goiter with multiple hot and cold nodules Discussed about treatment options antithyroid medication versus radioactive ablation versus surgery Patient chose to undergo I131 radioactive iodine ablation Will schedule this for patient PRAKASH Follow-up in 3 months for repeat thyroid labs checked Will also perform a follow-up thyroid ultrasound at that time Abnormal thyroid function test 01/20/2020 Assessment & Plan (01/20/2020 2:27 PM CDT): Recheck thyroid labs If TSH is suppressed plan to get Nm thyroid uptake and scan Vitamin D deficiency 01/20/2020 S/P gastric bypass 01/20/2020 Abnormal TSH 12/10/2018 Assessment & Plan (12/10/2018 9:41 AM VET ASSISTANT): Patient has a pattern of subclinical hyperthyroidism on initial TFTs. -will repeat TFTs to demonstrate persistence of the abnormalities. -if this is due to toxic multinodular goiter, would likely recommend treatment with PATTERSON as this will often produce euthyroid results without resulting hypothyroidism Multinodular goiter 12/07/2018 Assessment & Plan (02/12/2021 6:21 PM CDT): performed a follow up thyroid ultrasound 08/07/2020 See full report Stable bilateral thyroid nodules No compressive symptoms Recheck thyroid ultrasound 07/2021 Assessment & Plan (08/07/2020 10:52 AM CDT): performed a repeat thyroid ultrasound today in office See full report Stable bilateral thyroid nodules No compressive symptoms Assessment & Plan (04/16/2020 12:29 PM CDT): Plan as above Assessment & Plan (01/20/2020 2:28 PM CDT): Bilateral thyroid nodules Status post right thyroid nodule FNA biopsy in 2019 showed chronic lymphocytic thyroiditis Left thyroid nodule Was hot Recheck thyroid labs If TSH is low, plan to get nuclear medicine thyroid uptake and scan Assessment & Plan (12/10/2018 9:40 AM VET ASSISTANT): -patient with thyroid ultrasound demonstrating multiple large nodules, corroborated on physical exam. Some of which meet criteria for biopsy based on size alone. -however, patient has subclinical hyperthyroidism on labwork. Will repeat TFTs today and plan on thyroid uptake and scan to evaluate whether nodules are hot or cold. If any of the nodules are cold, will then discuss biopsy. If some are hot, will discuss treatment with PATTERSON Cyst of breast 10/27/2014 Immunizations Name Administration Dates Next Due Tdap 09/07/2019 Surgical History Surgery Date Site/Laterality Comments OTHER SURGICAL HISTORY 2007 Left Arthroscopy elbow STOMACH SURGERY Gastric Surgery - (Added by AMBER Conv) Medical History Medical History Date Comments Hx Other Medical Headache, migra ine Hypertension Hypertension Personal history of other sp ecified conditions History of breast lump - (Ad ded by AMBER Conv) Family History * Patient is adopted Medical History Relation Name Comments No Known Problems Father No Known Problems Mother Relation Name Status Comments Father Mother Social History Tobacco Use Types Packs/Day Years Used Date Smoking Tobacco: Never Smokeless Tobacco: Never Alcohol Use Standard Drinks/Week Comments Yes 0 (1 standard drink = 0.6 oz pur e alcohol) PHQ-2 Answer Date Recorded PHQ-2 Total Score (If total score is 3 or more points, staff should administer the PHQ-9) 0 02/10/2021 Comments Unknown Sex and Gender Information Value Date Recorded Sex Assigned at Not on file Legal Sex Female 11:49 PM VET ASSISTANT Gender Identity Not on file Sexual Orientation Not on file Obstetrics History Last Filed Vital Signs Vital Sign Reading Time Taken Comments Blood Pressure 122/74 05/14/2021 12:29 PM CDT Pulse 63 05/14/2021 12:29 PM CDT Temperature 36.8 C (98.2 F) 05/14/2021 12:29 PM CDT Respiratory Rate 16 05/14/2021 12:29 PM CDT Oxygen Saturation 96% 05/14/2021 12:29 PM CDT Inhaled Oxygen Concentration - - Weight 77.6 kg (171 lb) 05/14/2021 12:29 PM CDT Height 160 cm (5' 3 ) 05/14/2021 12:29 PM CDT Body Mass Index 30.29 05/14/2021 12:29 PM CDT Plan of Treatment Not on file Insurance [facility] Address: [address] [address] [place] [address] [employer] [facility]/PPO Address: [address] [address] [place] [address] Care Teams Pediatric Genetic Counselor Relationship Specialty Start Date End Date No, Physician PCP - General 04/15/20
--- OUTSIDE RECORDS SUMMARY | 2024-11-25 13:02 | XMS_ITS | Referral Summary ---
Author Organization [facility] Address [address] [place] [id number] Care Team Providers Care Trestle Builder Name Role Phone No, Physician Primary Care Provider [phone] Allergies Active Allergy Reactions Criticality Noted Date Comments Venom-Honey Bee Venom-Wasp Swelling Medium 05/04/2021 Medications ergocalciferol (VITAMIN D) 50,000 unit capsule ORAL 1 CAPSULE TWICE A WEEKLY WITH A LARGE MEAL 4 11/29/2018 Active EPINEPHrine syringe (ADRENALIN) 0.1 mg/mL injection Acti ve multivitamin capsule Take 1 capsule by mouth daily Active zinc 50 mg tablet Take by mouth Active vitamin D06-dedks acid 0.5-1 mg tablet Take by mouth [...] 12/10/2018 Assessment & Plan (12/10/2018 9:41 AM STORE WORKER): Patient has a pattern of subclinical hyperthyroidism [...] scan Assessment & Plan (12/10/2018 9:40 AM STORE WORKER): -patient with thyroid ultrasound demonstrating multiple large [...] Name Administration Dates Next Due Tdap 09/07/2019 Social History Tobacco Use Types Packs/Day Years [...] on file Legal Sex Female 11:49 PM STORE WORKER Gender Identity Not on file Sexual Orientation Not on file Last Filed Vital Signs Vital Sign Reading [...] Plan of Treatment Not on file Insurance [facility] [employer]O Address: [address] [address] [place] [address] [employer] [facility] Address: [address] [address] [place] [address] Care Teams Trestle Builder Relationship Specialty Start Date End Date No, Physician PCP - General 04/15/20
--- OUTSIDE RECORDS SUMMARY | 2024-11-25 13:02 | XMS_ITS | Patient Health Summary ---
Author Organization [facility] Address [address] [place] [address] Care Team Providers Care Head Screen Worker Name Role Phone Boston Benavides Primary Care Provider [phone] Note from Formerly named [facility],non-owned Affiliates and Associated Physician Practices is amultiple site organization consisting of ambulatory clinics and hospital sitesin [place], [place], [place] and [place]. This disclosure is being madepursuant to the Care Everywhere program and may not contain all information available regarding this patient. Last updated 18.[facility] Allergies * Other(Swelling) -High Criticality Medications * Be aware that medications may not be up to date on this document. Alwaysverify current medications with the patient. * vitamin D, cholecalciferol, 2000 UNITS tablet Take 2,000 Units by mouth once daily * B Complex Vitamins (VITAMIN-B COMPLEX PO) * Other Reasons: eye suppletment OTC Active Problems No known active problems Social History Tobacco Use Types Packs/Day Years Used Date Smoking Tobacco: Never Smokeless Tobacco: Never Alcohol Use Standard Drinks/Week Comments Yes 0 (1 standard drink = 0.6 oz pur e alcohol) SOCIAL/RARE Sex and Gender Information Value Date Recorded Sex Assigned at Not on file Gender Identity Not on file Sexual Orientation Not on file Last Filed Vital Signs Vital Sign Reading Time Taken Comments Blood Pressure 118/70 05/14/2019 10:13 AM CDT Pulse 80 05/14/2019 10:13 AM CDT Temperature 36.8 C (98.2 F) 05/14/2019 10:13 AM CDT Respiratory Rate 17 06/21/2018 2:03 PM CDT Oxygen Saturation 99% 05/14/2019 10:13 AM CDT Inhaled Oxygen Concentration - - Weight 76.7 kg (169 lb) 05/14/2019 10:13 AM CDT Height 157.5 cm (5' 2 ) 05/14/2019 10:13 AM CDT Body Mass Index 30.91 05/14/2019 10:13 AM CDT Procedures * URINALYSIS AUTO - POINT OF CARE (AMB) STL(Performed 05/14/2019) Performed for Acute cystitis with hematuria * URINALYSIS AUTO - POINT OF CARE (AMB) STL(Performed 06/21/2018) Performed for Acute cystitis with hematuria * STREP A SCREEN - POINT OF CARE (AMB) STL(Performed 06/06/2018) Performed for Acute sinusitis, recurrence not specified, unspecified location * ZINC BLOOD(Performed 10/07/2013) Performed for Obesity, Bariatric surgery status, Loss of weight, Unspecified Intestinal Malabsorption (Hcc), Unspecified vitamin D deficiency, Unspecified nutritional deficiency, Unspecified vitamin deficiency, Malnutrition of moderate degree (HCC) * VITAMIN D 25-HYDROXY(Performed 10/07/2013) Performed for Obesity, Bariatric surgery status, Loss of weight, Unspecified Intestinal Malabsorption (Hcc), Unspecified vitamin D deficiency, Unspecified nutritional deficiency, Unspecified vitamin deficiency, Malnutrition of moderate degree (HCC) * VITAMIN B12(Performed 10/07/2013) Performed for Obesity, Bariatric surgery status, Loss of weight, Unspecified Intestinal Malabsorption (Hcc), Unspecified vitamin D deficiency, Unspecified nutritional deficiency, Unspecified vitamin deficiency, Malnutrition of moderate degree (HCC) * VITAMIN B1(Performed 10/07/2013) Performed for Obesity, Bariatric surgery status, Loss of weight, Unspecified Intestinal Malabsorption (Hcc), Unspecified vitamin D deficiency, Unspecified nutritional deficiency, Unspecified vitamin deficiency, Malnutrition of moderate degree (HCC) * PTH INTACT(Performed 10/07/2013) Performed for Obesity, Bariatric surgery status, Loss of weight, Unspecified Intestinal Malabsorption (Hcc), Unspecified vitamin D deficiency, Unspecified nutritional deficiency, Unspecified vitamin deficiency, Malnutrition of moderate degree (HCC) * MAGNESIUM BLOOD(Performed 10/07/2013) Performed for Obesity, Bariatric surgery status, Loss of weight, Unspecified Intestinal Malabsorption (Hcc), Unspecified vitamin D deficiency, Unspecified nutritional deficiency, Unspecified vitamin deficiency, Malnutrition of moderate degree (HCC) * IRON BLOOD(Performed 10/07/2013) Performed for Obesity, Bariatric surgery status, Loss of weight, Unspecified Intestinal Malabsorption (Hcc), Unspecified vitamin D deficiency, Unspecified nutritional deficiency, Unspecified vitamin deficiency, Malnutrition of moderate degree (HCC) * FOLATE RBC(Performed 10/07/2013) Performed for Obesity, Bariatric surgery status, Loss of weight, Unspecified Intestinal Malabsorption (Hcc), Unspecified vitamin D deficiency, Unspecified nutritional deficiency, Unspecified vitamin deficiency, Malnutrition of moderate degree (HCC) * FERRITIN(Performed 10/07/2013) Performed for Obesity, Bariatric surgery status, Loss of weight, Unspecified Intestinal Malabsorption (Hcc), Unspecified vitamin D deficiency, Unspecified nutritional deficiency, Unspecified vitamin deficiency, Malnutrition of moderate degree (HCC) * COMPREHENSIVE METABOLIC PANEL(Performed 10/07/2013) Performed for Obesity, Bariatric surgery status, Loss of weight, Unspecified Intestinal Malabsorption (Hcc), Unspecified vitamin D deficiency, Unspecified nutritional deficiency, Unspecified vitamin deficiency, Malnutrition of moderate degree (HCC) * CBC W AUTO DIFFERENTIAL(Performed 10/07/2013) Performed for Obesity, Bariatric surgery status, Loss of weight, Unspecified Intestinal Malabsorption (Hcc), Unspecified vitamin D deficiency, Unspecified nutritional deficiency, Unspecified vitamin deficiency, Malnutrition of moderate degree (HCC) * FL FLUORO UPPER GI TRACT + KUB(Performed 03/21/2013) Performed for Gastric bypass status for obesity * GLUCOSE - POINT OF CARE(Performed 03/21/2013) * BASIC METABOLIC PANEL (CALCIUM TOTAL)(Performed 03/21/2013) * CBC W AUTO DIFFERENTIAL(Performed 03/21/2013) * GLUCOSE - POINT OF CARE(Performed 03/21/2013) * LAPAROSCOPIC GASTRIC BYPASS(Performed 03/20/2013) Performed for Morbid obesity (HCC) * HCG URINE QUALITATIVE - POINT OF CARE(Performed 03/20/2013) * POTASSIUM BLOOD(Performed 03/20/2013) * VITAMIN B12(Performed 03/14/2013) Performed for Preoperative examination * VITAMIN B1(Performed 03/14/2013) Performed for Preoperative examination * VITAMIN D 25-HYDROXY(Performed 03/14/2013) Performed for Preoperative examination * CBC W AUTO DIFFERENTIAL(Performed 03/14/2013) Performed for Preoperative examination * COMPREHENSIVE METABOLIC PANEL(Performed 03/14/2013) Performed for Preoperative examination * EKG 12-LEAD(Performed 03/14/2013) Performed for Preoperative examination Results * URINALYSIS AUTO - POINT OF CARE (AMB) STL (05/14/2019) Only the most recent of2 resultswithin the time period is included. Clarity UA POCT cloudy Color UA POCT dark yellow Leukocyte UA 500 Negative Nitrite UA POCT neg Negative Urobilinogen UA 0.2 0.1 - 1.0 Protein UA POCT trace Negative pH UA 5.0 5.0 - 8.0 pH units Blood UA 3+ Negative Specific [place] UA POCT 1.015 1.002 - 1.030 Ketone UA small Negative Bilirubin UA POCT neg Negative Glucose UA neg Negative Expiration Date 12/31/2020 Lot # [id number] QC Verified Yes Yes Urine URINE / Unknown 05/14/2019 Marita Cotton CASING MIXER-[employer] SE[employer] ENGINEER LAB - POINT O F CARE ORDERABLES * STREP A SCREEN - POINT OF CARE (AMB) STL (06/06/2018) Strep A Rapid POCT Negative Negative Strep A Internal Control Present Lot # [id number] Expiration Date 12/06/19 Throat ENTIRE THROAT (SURFACE REGION OF NECK) / Unknown 06/06/2018 Obed Albarran CASING MIXER-[employer] SE[employer] ENGINEER LAB - POINT OF CARE ORDERABLES * ZINC BLOOD (10/07/2013 10:32 AM COMMUTATOR UNDERCUTTER) Pathologist [facility] Zinc, Plasma or Serum 77 56 - 134 ug/dL [facility] ACCOUNT BILL Comment:Detection Limit = 5 Blood specimen (specimen) BLOOD SPECIMEN / Unknown 10/07/2013 10:32 AM COMMUTATOR UNDERCUTTER 10/07/2013 3:16 PM COMMUTATOR UNDERCUTTER Narrative Resulting Agency Comment [facility] [address] [phone] Ani Szymanski CASING M[employer]ER-[employer] SE[employer]ATION PLANT ENGINEER LAB - CHEMIS TRY ORDERABLES [facility] ACCOUNT BILL * VITAMIN B1 (10/07/2013 10:32 AM COMMUTATOR UNDERCUTTER) Only the most recent of2 resultswithin the time period is included. Vitamin B1 Whole Blood 93.8 66.5 - 200.0 nmol/L [facility] ACCOUNT BILL Blood specimen (specimen) BLOOD SPECIMEN / Unknown 10/07/2013 10:32 AM COMMUTATOR UNDERCUTTER 10/07/2013 3:16 PM COMMUTATOR UNDERCUTTER Narrative Resulting Agency Comment [facility] [address] [phone] Ani Farideh Nessa CASING MIXER-Kleer LAB - CHEMIS TRY ORDERABLES [facility] ACCOUNT BILL * PTH INTACT (10/07/2013 10:32 AM COMMUTATOR UNDERCUTTER) PTH Intact 38 15 - 65 pg/mL [facility] ACCOUNT BILL Blood specimen (specimen) BLOOD SPECIMEN / Unknown 10/07/2013 10:32 AM COMMUTATOR UNDERCUTTER 10/07/2013 3:16 PM COMMUTATOR UNDERCUTTER Narrative Resulting Agency Comment [facility] [place] [id number] [facility] [phone] Ani Szymanski CASING MIXER-Kleer LAB - CHEMIS TRY ORDERABLES Performing Organization Address [facility] de Phone Number [facility] ACCOUNT BILL * (ABNORMAL) FOLATE RBC (10/07/2013 10:32 AM COMMUTATOR UNDERCUTTER) Folate Hemolysate 204.8 Not Estab. ng/mL [facility] ACCOUNT BILL Folate RBC 476(L) 499 - 1,504 ng/mL [facility] ACCOUNT BILL Blood specimen (specimen) BLOOD SPECIMEN / Unknown 10/07/2013 10:32 AM COMMUTATOR UNDERCUTTER 10/07/2013 3:16 PM COMMUTATOR UNDERCUTTER Narrative Resulting Agency Comment [facility] [place] [address] [facility] [phone] Ani A Nessa CASING MIXER-Kleer LAB - CHEMIS TRY ORDERABLES [facility] ACCOUNT BILL * (ABNORMAL) VITAMIN D 25-HYDROXY (10/07/2013 10:32 AM COMMUTATOR UNDERCUTTER) Only the most recent of2 resultswithin the time period is included. Vitamin D, 25 Hydroxy 23.8(L) 30.0 - 100.0 ng/mL [facility] ACCOUNT BILL Comment: Vitamin D deficiency has been defined by the Tea of Medicine and an Endocrine Society practice guideline as a level of serum 25-OH vitamin D less than 20 ng/mL (1,2). The Endocrine Society went on to further define vitamin D insufficiency as a level between 21 and 29 ng/mL (2). 1. IOM (Tea of Medicine). 2010. Dietary reference intakes for calcium and D. [place]: The National Academies Press. 2. Darrell MF, Sukumar CONLEY, Danyell LEIGH, et al. Evaluation, treatment, and prevention of vitamin D deficiency: an Endocrine Society clinical practice guideline. JCEM. 2010; 96(7):1911-30. Blood specimen (specimen) BLOOD SPECIMEN / Unknown 10/07/2013 10:32 AM COMMUTATOR UNDERCUTTER 10/07/2013 3:16 PM COMMUTATOR UNDERCUTTER Narrative Resulting Agency Comment [facility] [address] [phone] Ani Szymanski APRN-CARBON SE[employer]STRATION PLANT ENGINEER LAB - CHEMIS TRY ORDERABLES [facility] ACCOUNT BILL * CBC W AUTO DIFFERENTIAL (10/07/2013 10:32 AM COMMUTATOR UNDERCUTTER) Only the most recent of3 resultswithin the time period is included. WBC 7.2 3.4 - 10.8 x10E3/uL [facility] ACCOUNT BILL RBC 4.95 3.77 - 5.28 x10E6/uL [facility] ACCOUNT BILL Hemoglobin 14.2 11.1 - 15.9 g/dL [facility] ACCOUNT BILL Hematocrit 43.0 34.0 - 46.6 % [facility] ACCOUNT BILL MCV 87 79 - 97 fL [facility] ACCOUNT BILL MCH 28.7 26.6 - 33.0 pg [facility] ACCOUNT BILL MCHC 33.0 31.5 - 35.7 g/dL [facility] ACCOUNT BILL RDW 14.4 12.3 - 15.4 % [facility] ACCOUNT BILL Platelet Count 280 155 - 379 x10E3/uL [facility] ACCOUNT BILL Granulocytes % 61 40 - 74 % [facility] ACCOUNT BILL Lymphocytes % 31 14 - 46 % [facility] ACCOUNT BILL Monocytes % 5 4 - 12 % [facility] ACCOUNT BILL Eosinophils % 2 0 - 5 % [facility] ACCOUNT BILL Basophils % 1 0 - 3 % [facility] ACCOUNT BILL Immature Cells NOT NEEDED [facility] ACCOUNT BILL Comment:Ancillary determined the test is not needed Granulocytes Absolute 4.4 1.4 - 7.0 x10E3/uL [facility] ACCOUNT BILL Lymphocytes Absolute 2.2 0.7 - 3.1 x10E3/uL [facility] ACCOUNT BILL Monocytes Absolute 0.4 0.1 - 0.9 x10E3/uL [facility] ACCOUNT BILL Eosinophils Absolute 0.1 0.0 - 0.4 x10E3/uL [facility] ACCOUNT BILL Basophils Absolute 0.0 0.0 - 0.2 x10E3/uL [facility] ACCOUNT BILL Immature Granulocytes 0 0 - 2 % [facility] ACCOUNT BILL Immature Granulocytes Absolute 0.0 0.0 - 0.1 x10E3/uL [facility] ACCOUNT BILL nRBC NOT NEEDED [facility] ACCOUNT BILL Comment:Ancillary determined the test is not needed Comment Hematology NOT NEEDED [facility] ACCOUNT BILL Comment:Ancillary determined the test is not needed Blood specimen (specimen) BLOOD SPECIMEN / Unknown 10/07/2013 10:32 AM COMMUTATOR UNDERCUTTER 10/07/2013 3:16 PM COMMUTATOR UNDERCUTTER Narrative Resulting Agency Comment [facility] [address] [phone] Ani Szymanski CASING M[employer]ER[employer] SE[employer] ENGINEER LAB - HEMATO LOGY ORDERABLES [facility] ACCOUNT BILL * COMPREHENSIVE METABOLIC PANEL (10/07/2013 10:32 AM COMMUTATOR UNDERCUTTER) Only the most recent of2 resultswithin the time period is included. Glucose 86 65 - 99 mg/dL [facility] ACCOUNT BILL BUN 8 6 - 24 mg/dL [facility] ACCOUNT BILL Creatinine 0.75 0.57 - 1.00 mg/dL [facility] ACCOUNT BILL eGFR by MDRD 93 >59 mL/min/1.7 3 [facility] ACCOUNT BILL eGFR by MDRD 107 >59 mL/min/1.7 3 [facility] ACCOUNT BILL BUN/Creatinine Ratio 11 9 - 23 [facility] ACCOUNT BILL Sodium 140 134 - 144 mmol/L [facility] ACCOUNT BILL Potassium 3.6 3.5 - 5.2 mmol/L [facility] ACCOUNT BILL Chloride 103 97 - 108 mmol/L [facility] ACCOUNT BILL CO2 22 19 - 28 mmol/L [facility] ACCOUNT BILL Calcium 9.4 8.7 - 10.2 mg/dL [facility] ACCOUNT BILL Protein Total 6.8 6.0 - 8.5 g/dL [facility] ACCOUNT BILL Albumin 4.2 3.5 - 5.5 g/dL [facility] ACCOUNT BILL Globulin Total 2.6 1.5 - 4.5 g/dL [facility] ACCOUNT BILL Albumin/Globulin Ratio 1.6 1.1 - 2.5 [facility] ACCOUNT BILL Bilirubin Total 0.4 0.0 - 1.2 mg/dL [facility] ACCOUNT BILL Alkaline Phosphatase 75 39 - 117 IU/L [facility] ACCOUNT BILL AST 16 0 - 40 IU/L [facility] ACCOUNT BILL ALT 11 0 - 32 IU/L [facility] ACCOUNT BILL Blood specimen (specimen) BLOOD SPECIMEN / Unknown 10/07/2013 10:32 AM COMMUTATOR UNDERCUTTER 10/07/2013 3:16 PM COMMUTATOR UNDERCUTTER Narrative Resulting Agency Comment [address] [phone] Ani Szymanski CASING MIXERBATS LAB - CHEMIS TRY ORDERABLES Performing Organization Address [facility] de Phone Number [facility] ACCOUNT BILL * MAGNESIUM BLOOD (10/07/2013 10:32 AM COMMUTATOR UNDERCUTTER) Magnesium 2.0 1.6 - 2.6 mg/dL [facility] ACCOUNT BILL Blood specimen (specimen) BLOOD SPECIMEN / Unknown 10/07/2013 10:32 AM COMMUTATOR UNDERCUTTER 10/07/2013 3:16 PM COMMUTATOR UNDERCUTTER Narrative Resulting Agency Comment [facility] [address] [phone] Ani Szymanski CASING M[employer]ER[employer] SE[employer]ATION PLANT ENGINEER LAB - CHEMIS TRY ORDERABLES [facility] ACCOUNT BILL * IRON BLOOD (10/07/2013 10:32 AM COMMUTATOR UNDERCUTTER) Iron 50 35 - 155 ug/dL [facility] ACCOUNT BILL Blood specimen (specimen) BLOOD SPECIMEN / Unknown 10/07/2013 10:32 AM COMMUTATOR UNDERCUTTER 10/07/2013 3:16 PM COMMUTATOR UNDERCUTTER Narrative Resulting Agency [facility] [address] [phone] Ani Szymanski APRN-CARBON SE[employer] ENGINEER LAB - CHEMIS TRY ORDERABLES [facility] ACCOUNT BILL * (ABNORMAL) VITAMIN B12 (10/07/2013 10:32 AM COMMUTATOR UNDERCUTTER) Only the most recent of2 resultswithin the time period is included. Vitamin B12 175(L) 211 - 946 pg/mL [facility] ACCOUNT BILL Blood specimen (specimen) BLOOD SPECIMEN / Unknown 10/07/2013 10:32 AM COMMUTATOR UNDERCUTTER 10/07/2013 3:16 PM COMMUTATOR UNDERCUTTER Narrative Resulting Agency [facility] [address] [phone] Ani Szymanski APRN-Kleer LAB - CHEMIS TRY ORDERABLES Performing Organization Address City/[facility] Co de Phone Number [facility] ACCOUNT BILL * FERRITIN (10/07/2013 10:32 AM COMMUTATOR UNDERCUTTER) Ferritin 23 15 - 150 ng/mL [facility] ACCOUNT BILL Blood specimen (specimen) BLOOD SPECIMEN / Unknown 10/07/2013 10:32 AM COMMUTATOR UNDERCUTTER 10/07/2013 3:16 PM COMMUTATOR UNDERCUTTER Narrative Resulting Agency Comment [facility] [address] [phone] Ani Szymanski APRN-CARB[employer] SE[employer]ANT ENGINEER LAB - CHEMIS TRY ORDERABLES Performing Organization Address City/[facility] Co de Phone Number [facility] ACCOUNT BILL * (ABNORMAL) GLUCOSE - POINT OF CARE (03/21/2013 12:25 PM CDT) Only the most recent of3 resultswithin the time period is included. Blood specimen (specimen) BLOOD SPECIMEN / Unknown 03/21/2013 12:25 PM CDT 03/21/2013 12:31 PM CDT Arben Jhaveri MD LAB - POINT OF CARE ORDERABLES [facility] [address] [place] [address] * FL FLUORO UPPER GI TRACT + KUB (03/21/2013 11:25 AM CDT) Anatomical Region Laterality Modality Abdomen Radiographic Stefani ging 03/21/2013 11:4 8 AM CDT Narrative 03/21/2013 11:48 AM CDT Examination: Gastrografin upper GI. Indication for examination: Postop gastric bypass surgery. Abdominal pain. Preliminary adult day care worker films demonstrate postsurgical change in the gastric bed. There is a drain in place. After administration of a small amount of water-soluble contrast, there is passage of contrast from the esophagus, through the gastric pouch and into the small intestine. No leak or contrast extravasation is identified. Fluoroscopy time 21 seconds. Conclusion: Post-op gastric bypass. No leak identified. See above. Procedure Note Hood Balderas MD - 03/21/2013 Examination: Gastrografin upper GI. Indication for examination: Postop gastric bypass surgery. Abdominal pain. Preliminary adult day care worker films demonstrate postsurgical change in the gastric bed. There is a drain in place. After administration of a small amount of water-soluble contrast, there is passage of contrast from the esophagus, through the gastric pouch and into the small intestine. No leak or contrast extravasation is identified. Fluoroscopy time 21 seconds. Conclusion: Post-op gastric bypass. No leak identified. See above. Arben Jhaveri MD FLUOROSCOPY ORDERABL ES * (ABNORMAL) BASIC METABOLIC PANEL (CALCIUM TOTAL) (03/21/2013 3:57 AM CDT) Glucose 147(H) 74 - 106 mg/dL 03/21/2013 4:24 AM CDT [facility] Sodium 134(L) 136 - 145 mmol/L 03/21/2013 4:24 AM CDT [facility] Potassium 4.0 3.5 - 5.1 mmol/L 03/21/2013 4:24 AM CDT [facility] Chloride 102 98 - 107 mmol/L 03/21/2013 4:24 AM CDT [facility] CO2 24 22 - 31 mmol/L 03/21/2013 4:24 AM CDT [facility] Calcium 8.0(L) 8.5 - 10.1 mg/dL 03/21/2013 4:24 AM CDT [facility] Anion Gap 8 5 - 15 mmol/L 03/21/2013 4:24 AM CDT [facility] BUN 8 7 - 21 mg/dL 03/21/2013 4:24 AM CDT [facility] Creatinine 0.61 0.50 - 1.30 mg/dL 03/21/2013 4:24 AM CDT [facility] eGFR by MDRD >60 >60 ml/min/1.7 3m2 03/21/2013 4:24 AM CDT [facility] eGFR by MDRD >60 >60 ml/min/1.7 3m2 03/21/2013 4:24 AM CDT [facility] Blood specimen (specimen) BLOOD SPECIMEN / Unknown 03/21/2013 3:57 AM CDT 03/21/2013 4:04 AM CDT Arben Jhaveri MD [facility] [address] [place] [address] * HCG URINE QUALITATIVE - POINT OF CARE (IP) (03/20/2013 12:06 PM CDT) HCG Qual Urine Negative Negative [facility] QC Verified Yes Yes [facility] POC T TESTING Urine specimen (specimen) URINE / Unknown 03/20/2013 12:06 PM CDT Arben Jhaveri MD LAB - POINT OF CARE ORDERABLES Performing Organization Address City/[facility]/ZIP Co de Phone Number [facility] [address] [place] [address] * (ABNORMAL) POTASSIUM BLOOD (03/20/2013 11:46 AM CDT) Potassium 3.3(L) 3.5 - 5.1 mmol/L 03/20/2013 12:15 PM CDT [facility] Blood specimen (specimen) BLOOD SPECIMEN / Unknown 03/20/2013 11:46 AM CDT 03/20/2013 11:50 AM CDT Arben Jhaveri MD LAB - CHEMISTRY SYLVAIN CANTU Performing Organization Address City/[facility] Co de Phone Number [facility] [address] [place] [address] * EKG 12-LEAD (03/14/2013 10:22 AM CDT) Ventricular Rate 58 BPM [facility] Atrial Rate 58 BPM [facility] P-R Interval 168 ms [facility] QRS Duration ms 84 ms [facility] Q-T Interval ms 418 ms [facility] QTC Calculation (Bezet) 410 ms [facility] Calculated P [place] 59 degrees [facility] Calculated R [place] 28 degrees [facility] Calculated T [place] 61 degrees [facility] Interpretation EKG Sinus bradycardia Otherwise normal ECG No previous ECGs available Confirmed by TAMIKA WELLS ([id number]) on 03/14/2013 8:04:10 PM [facility] 03/14/2013 10:2 2 AM CDT 03/14/2013 8:04 PM CDT Narrative [facility] - 03/14/2013 8:05 PM CDT Procedure Note Document, Scanned - 03/14/2013 1:14 PM CDT Transcriptions Document, Scanned - 03/14/2013 8:05 PM CDT Arben Jhaveri MD ECG ORDERABLES [facility] Care Teams Head Screen Worker Relationship Specialty Start Date End Date Boston Benavides PA [address] [place] [address] PCP - General Physician Hotel Operations Manager 03/14/13
--- OUTSIDE RECORDS SUMMARY | 2024-11-25 13:02 | XMS_ITS | Referral Summary ---
Author Organization [facility] Address [address] [facility] [place] [address] Care Team Providers Care Acreage Reporter Name Role Phone Boston Benavides Primary Care Provider [phone] Source Comments [facility]non-owned Affiliates and Associated Physician Practices is amultiple site organization consisting of ambulatory clinics and hospital sitesin [place], [place], [place]. This disclosure is being madepursuant to the Care Everywhere program and may not contain all information available regarding this patient. Last updated 18.[facility] Allergies Active Allergy Reactions Criticality Noted Date Comments Other Swelling High 01/14/2013 Bee sting-carries epi pen Medications * Be aware that medications may not be up to date on this document. Alwaysverify current medications with the patient. Medication Sig Dispensed Refills Start Date End Date Status vitamin D, cholecalciferol, 2000 UNITS tablet Take 2,000 Units by mouth once daily Active B Complex Vitamins (VITAMIN-B COMPLEX PO) Active OtherIndications:eye suppletment OTC Reasons: eye suppletment OTC Active Active Problems No known active problems Social [...] Mass Index 30.91 05/14/2019 10:13 AM CDT Plan of Treatment Not on file Procedures Procedure Name Priority Date/Time Associated Diagnosis Comments COMPREHENSIVE METABOLIC PANEL Routine 10/07/2013 10:32 AM WOOD PLANER Obesity Bariatric surgery status Loss of weight Unspecified Intestinal Malabsorption (Hcc) Unspecified vitamin D deficiency Unspecified nutritional deficiency Unspecified vitamin deficiency Malnutrition of moderate degree (HCC) from Last 3 Months or Most Recently Relevant to Health Maintenance Results * COMPREHENSIVE METABOLIC PANEL (10/07/2013 10:32 AM WOOD PLANER) Glucose 86 65 - 99 mg/dL [facility] [...] BLOOD SPECIMEN / Unknown 10/07/2013 10:32 AM WOOD PLANER 10/07/2013 3:16 PM WOOD PLANER Narrative Resulting Agency Comment [facility] [address] [phone] Ani Szymanski SUPERVISOR WET END-SHOT HOLE DRILLER LAB - CHEMIS TRY ORDERABLES [facility] ACCOUNT BILL from Last 3 Months or Most Recently Relevant to Health Maintenance Advance Directives * FULL RESUSCITATION (Latest Code Status on File) Date Activated Date Inactivated Comments 03/20/2013 8:17 PM 03/21/2013 5:04 PM Care Teams Acreage Reporter Relationship Specialty Start Date End Date Boston Benavides PA [address] [place] [address] PCP - General Physician Product Safety Administrator 03/14/13
--- OUTSIDE RECORDS SUMMARY | 2024-11-25 13:02 | XMS_ITS | Clinical Summary ---
Author Organization [facility] Address [address] [place] [address] Care Team Providers Care Cone Sewer Name Role Phone Boston Benavides Primary Care Provider [phone] Source Comments [facility],non-owned Affiliates and Associated Physician Practices is amultiple site organization consisting of ambulatory clinics and hospital sitesin [place], [place], [place] and [place]. This disclosure is being madepursuant to the Care Everywhere program and may not contain all information available regarding this patient. Last updated 18.[facility] Allergies Active Allergy Reactions Criticality Noted Date [...] 05/14/2019 10:13 AM CDT Plan of Treatment Health Maintenance Due Date Last Done Comments COLOGUARD (AGES 45-75) - COLON CA SCREENING 1961 COLON MONITORING 1961 COLONOSCOPY - COLON CA SCREENING 1961 CT COLONOGRAPHY - COLON CA SCREENING 1961 Colorectal Cancer Screening 1961 FIT - COLON CA SCREENING 1961 FLEX SIG - COLON CA SCREENING 1961 LIPID TESTING 1961 MAMMOGRAM 1961 PAP SMEAR 1961 HIV SCREENING 1976 HEPATITIS C SCREENING 11/11/1979 DTAP/TDAP/TD VACCINES (1 - Tdap) 1980 PNEUMOCOCCAL VACCINE 50+ (1 of 1 - PCV) 2011 ZOSTER VACCINE (1 of 2) 2011 SCREENING FOR DIABETES 06/06/2018 3, 03/21/2013, 03/21/2013, Additional history exists COVID-19 VACCINE ( - 2023- season) 2024 INFLUENZA VACCINE (#1) 2024 DEPRESSION SCREENING 10/16/2024 Respiratory Syncytial Virus (RSV) Vaccine Pt: or over 60 yrs (1 - 1-dose 75+ series) 2036 HEPATITIS B VACCINE Aged Out No longe r eligible based on patient's age to complete this topic HIB VACCINE Aged Out No longer eligi ble based on patient's age to complete this topic HPV VACCINE Aged Out No longer eligi ble based on patient's age to complete this topic MENINGOCOCCAL (Group B) VACCINE Aged Out No longer eligible based on patient's age to complete this topic MENINGOCOCCAL VACCINE Aged Out No lat[place] iain eligible based on patient's age to complete this topic PNEUMOCOCCAL VACCINE Aged Out No long er eligible based on patient's age to complete this topic Procedures Procedure Name Priority Date/Time Associated Diagnosis Comments COMPREHENSIVE METABOLIC PANEL Routine 10/07/2013 10:32 AM SENIOR PROCESS CONTROL TECH Obesity Bariatric surgery status Loss of weight Unspecified Intestinal Malabsorption (Hcc) Unspecified vitamin D deficiency Unspecified nutritional deficiency Unspecified vitamin deficiency Malnutrition of moderate degree (HCC) from Last 3 Months or Most Recently Relevant to Health Maintenance Results * COMPREHENSIVE METABOLIC PANEL (10/07/2013 10:32 AM SENIOR PROCESS CONTROL TECH) Glucose 86 65 - 99 mg/dL [facility] [...] BLOOD SPECIMEN / Unknown 10/07/2013 10:32 AM SENIOR PROCESS CONTROL TECH 10/07/2013 3:16 PM SENIOR PROCESS CONTROL TECH Narrative Resulting Agency Comment [facility] [address] [phone] Ani Szymanski METAL CONTROL COORDINATOR-PUBLIC HEALTH DOCTOR LAB - CHEMIS TRY ORDERABLES [facility] ACCOUNT BILL from Last 3 Months or Most Recently Relevant to Health Maintenance Advance Directives * FULL RESUSCITATION (Latest Code Status on File) Date Activated Date Inactivated Comments 03/20/2013 8:17 PM 03/21/2013 5:04 PM Care Teams Cone Sewer Relationship Specialty Start Date End Date Boston Benavides PA [address] [place] [address] PCP - General Physician Cotton Bag Clipper 03/14/13
--- OUTSIDE RECORDS SUMMARY | 2024-11-25 13:02 | XMS_ITS | Clinical Summary ---
Author Organization [facility] [place] [place] [facility] Address [address] [place] [address] Phone Care Team Providers Care Biological Technical Officer Name Role Phone Unavailable Primary Care Provider Unavailabl e Social History Tobacco Use Types Packs/Day Years Used Date Smoking Tobacco: Never Assessed Comments Unknown Sex and Gender Information Value Date Recorded Sex Assigned at Not on file Legal Sex Female 1:58 PM SOUND MIXER Gender Identity Not on file Sexual Orientation Not on file Plan of Treatment Not on file
== END 2024-11-25 12:49 | disposition home or self-care (01) ==
LOC: CHSIMG 12:51
PROVIDERS: Visit Provider Obstetrics & Gynecology Gynecology
DX: Z12.31 Encounter for screening mammogram for malignant neoplasm of breast (principal); Z78.0 Asymptomatic menopausal state; R92.8 Other abnormal and inconclusive findings on diagnostic imaging of breast; M85.89 Other specified disorders of bone density and structure, multiple sites
CPT/HCPCS: 77063; 77067; 77080

== ENCOUNTER 2024-12-02 08:31 | Outpatient (CLI) | payer OTHER, SELFPAY ==
--- NOTE | ~2024-12-02 | MMUS_ITS ---
EXAMINATION: MM diagnostic pooja RT w ingrid, US breast RT complete HISTORY: Follow-up breast asymmetry TECHNIQUE: Additional 3-D tomosynthesis images of the right breast were performed and synthetic 2-D i mages were generated. CAD analysis was submitted and interpreted. High resolution complete right emma st ultrasound was performed. COMPARISON: Comparison to multiple prior studies sequentially, with oldest reviewed study dated 01/2020. BREAST PARENCHYMAL COMPOSITION: Not dense: There are scattered areas of fibroglandular density. FINDINGS: MAMMOGRAPHIC FINDINGS: Asymmetry medially in the right breast on CC view is less apparent with spot compression views. No di screte mass is identified. There are no suspicious calcifications. ULTRASOUND: Complete US of all 4 quadrants of the right breast/s and retroareolar region was reviewed. Normal het erogeneous echotexture without focal solid or cystic mass. IMPRESSION: 1. Probable benign focal asymmetry of the right breast by mammography. No sonographic correlate. 2. Recommend 6 month follow-up diagnostic right mammogram BI-RADS category 3, probably benign findings. Reviewed, dictated and finalized at location [] CABINET ASSEMBLER IMPRESSION: 1. Probable benign focal asymmetry of the right breast by mammography. No sonog raphic correlate. 2. Recommend 6 month follow-up diagnostic right mammogram BI-RADS category 3, probably benign findings.
--- OUTSIDE RECORDS SUMMARY | 2024-12-02 11:25 | XMS_ITS | Patient Health Summary ---
Author Organization [facility] Address [address] [place] [address] Care Team Providers Care Armored Car Driver Name Role Phone Boston Benavides Primary Care Provider [phone] Note from [facility],non-owned Affiliates and Associated Physician Practices is amultiple site organization consisting of ambulatory clinics and hospital sitesin [place], [place], [place] and [place]. This disclosure is being madepursuant to the Care Everywhere program and may not contain all information available regarding this patient. Last updated 18.[facility] Allergies * Other(Swelling) -High Criticality Medications [...] pH units Blood UA 3+ Negative Specific Supai UA POCT 1.015 1.002 - 1.030 Ketone UA small Negative Bilirubin UA POCT neg Negative Glucose UA neg Negative Expiration Date 12/31/2020 Lot # [id number] Verified Yes Yes Urine URINE / Unknown 05/14/2019 Marita Cotton LEAF SIZE PICKER-SMUDGER LAB - POINT O F CARE ORDERABLES * STREP A SCREEN - POINT OF CARE (AMB) STL (06/06/2018) Strep A Rapid POCT Negative Negative Strep A Internal Control Present Lot # [id number] Expiration Date 12/06/19 Throat ENTIRE THROAT (SURFACE REGION OF NECK) / Unknown 06/06/2018 Obed Albarran LEAF SIZE PICKER-SMUDGER LAB - POINT OF CARE ORDERABLES * ZINC BLOOD (10/07/2013 10:32 AM SCHOOL TRANSPORTATION SUPERVISOR) Pathologist [facility] Zinc, Plasma or Serum 77 56 - 134 ug/dL [facility] ACCOUNT BILL Comment:Detection Limit = 5 Blood specimen (specimen) BLOOD SPECIMEN / Unknown 10/07/2013 10:32 AM SCHOOL TRANSPORTATION SUPERVISOR 10/07/2013 3:16 PM SCHOOL TRANSPORTATION SUPERVISOR Narrative Resulting Agency Comment [facility] [address] [id number] Ani Szymanski LEAF SIZE PICKER-SMUDGER LAB - CHEMIS TRY ORDERABLES [facility] ACCOUNT BILL * VITAMIN B1 (10/07/2013 10:32 AM SCHOOL TRANSPORTATION SUPERVISOR) Only the most recent of2 resultswithin the time period is included. Vitamin B1 Whole Blood 93.8 66.5 - 200.0 nmol/L [facility] ACCOUNT BILL Blood specimen (specimen) BLOOD SPECIMEN / Unknown 10/07/2013 10:32 AM SCHOOL TRANSPORTATION SUPERVISOR 10/07/2013 3:16 PM SCHOOL TRANSPORTATION SUPERVISOR Narrative Resulting Agency Comment [facility] [address] [id number] Ani Farideh Nessa LEAF SIZE PICKER-[employer] LAB - CHEMIS TRY ORDERABLES [facility] ACCOUNT BILL * PTH INTACT (10/07/2013 10:32 AM SCHOOL TRANSPORTATION SUPERVISOR) PTH Intact 38 15 - 65 pg/mL [facility] ACCOUNT BILL Blood specimen (specimen) BLOOD SPECIMEN / Unknown 10/07/2013 10:32 AM SCHOOL TRANSPORTATION SUPERVISOR 10/07/2013 3:16 PM SCHOOL TRANSPORTATION SUPERVISOR Narrative Resulting Agency Comment [facility] [place] [id number] [facility] [id number] Ani Szymanski LEAF SIZE PICKER-[employer] LAB - CHEMIS TRY ORDERABLES Performing Organization Address [facility] de Phone Number [facility] ACCOUNT BILL * (ABNORMAL) FOLATE RBC (10/07/2013 10:32 AM SCHOOL TRANSPORTATION SUPERVISOR) Folate Hemolysate 204.8 Not Estab. ng/mL [facility] ACCOUNT BILL Folate RBC 476(L) 499 - 1,504 ng/mL [facility] ACCOUNT BILL Blood specimen (specimen) BLOOD SPECIMEN / Unknown 10/07/2013 10:32 AM SCHOOL TRANSPORTATION SUPERVISOR 10/07/2013 3:16 PM SCHOOL TRANSPORTATION SUPERVISOR Narrative Resulting Agency Comment [facility] [place] [address] [facility] [phone] Ani A Nessa LEAF SIZE PICKER-[employer] LAB - CHEMIS TRY ORDERABLES [facility] ACCOUNT BILL * (ABNORMAL) VITAMIN D 25-HYDROXY (10/07/2013 10:32 AM SCHOOL TRANSPORTATION SUPERVISOR) Only the most recent of2 resultswithin the time period is included. Vitamin D, 25 Hydroxy 23.8(L) 30.0 - 100.0 ng/mL [facility] ACCOUNT BILL Comment: Vitamin D deficiency has been defined by the Rainbow of Medicine and an Endocrine Society practice guideline as a level of serum 25-OH vitamin D less than 20 ng/mL (1,2). The Endocrine Society went on to further define vitamin D insufficiency as a level between 21 and 29 ng/mL (2). 1. IOM (Rainbow of Medicine). 2010. Dietary reference intakes for calcium and D. [place]: The National Academies Press. 2. Darrell MF, Sukumar CONLEY, Danyell LEIGH, et al. Evaluation, treatment, and prevention of vitamin D deficiency: an Endocrine Society clinical practice guideline. JCEM. 2010; 96(7):1911-30. Blood specimen (specimen) BLOOD SPECIMEN / Unknown 10/07/2013 10:32 AM SCHOOL TRANSPORTATION SUPERVISOR 10/07/2013 3:16 PM SCHOOL TRANSPORTATION SUPERVISOR Narrative Resulting Agency Comment [facility] [address] [phone] Ani Szymanski APRN-SMUDGER LAB - CHEMIS TRY ORDERABLES [facility] ACCOUNT BILL * CBC W AUTO DIFFERENTIAL (10/07/2013 10:32 AM SCHOOL TRANSPORTATION SUPERVISOR) Only the most recent of3 resultswithin the [...] BLOOD SPECIMEN / Unknown 10/07/2013 10:32 AM SCHOOL TRANSPORTATION SUPERVISOR 10/07/2013 3:16 PM SCHOOL TRANSPORTATION SUPERVISOR Narrative Resulting Agency Comment [facility] [address] [phone] Ani Szymanski LEAF SIZE PICKER-SMUDGER LAB - HEMATO LOGY ORDERABLES [facility] ACCOUNT BILL * COMPREHENSIVE METABOLIC PANEL (10/07/2013 10:32 AM SCHOOL TRANSPORTATION SUPERVISOR) Only the most recent of2 resultswithin the [...] BLOOD SPECIMEN / Unknown 10/07/2013 10:32 AM SCHOOL TRANSPORTATION SUPERVISOR 10/07/2013 3:16 PM SCHOOL TRANSPORTATION SUPERVISOR Narrative Resulting Agency Comment [address] [phone] Ani Szymanski LEAF SIZE [employer] LAB - CHEMIS TRY ORDERABLES Performing Organization Address [facility] de Phone Number [facility] ACCOUNT BILL * MAGNESIUM BLOOD (10/07/2013 10:32 AM SCHOOL TRANSPORTATION SUPERVISOR) Magnesium 2.0 1.6 - 2.6 mg/dL [facility] ACCOUNT BILL Blood specimen (specimen) BLOOD SPECIMEN / Unknown 10/07/2013 10:32 AM SCHOOL TRANSPORTATION SUPERVISOR 10/07/2013 3:16 PM SCHOOL TRANSPORTATION SUPERVISOR Narrative Resulting Agency Comment [facility] [address] [facility] [phone] Ani Szymanski LEAF SIZE PICKER-SMUDGER LAB - CHEMIS TRY ORDERABLES [facility] ACCOUNT BILL * IRON BLOOD (10/07/2013 10:32 AM SCHOOL TRANSPORTATION SUPERVISOR) Iron 50 35 - 155 ug/dL [facility] ACCOUNT BILL Blood specimen (specimen) BLOOD SPECIMEN / Unknown 10/07/2013 10:32 AM SCHOOL TRANSPORTATION SUPERVISOR 10/07/2013 3:16 PM SCHOOL TRANSPORTATION SUPERVISOR Narrative Resulting Agency Comment [facility] [address] [facility] [phone] Ani Szymanski APRN-SMUDGER LAB - CHEMIS TRY ORDERABLES [facility] ACCOUNT BILL * (ABNORMAL) VITAMIN B12 (10/07/2013 10:32 AM SCHOOL TRANSPORTATION SUPERVISOR) Only the most recent of2 resultswithin the time period is included. Vitamin B12 175(L) 211 - 946 pg/mL [facility] ACCOUNT BILL Blood specimen (specimen) BLOOD SPECIMEN / Unknown 10/07/2013 10:32 AM SCHOOL TRANSPORTATION SUPERVISOR 10/07/2013 3:16 PM SCHOOL TRANSPORTATION SUPERVISOR Narrative Resulting Agency Comment [facility] [address] [facility] [phone] Ani Szymanski APRN-[employer] LAB - CHEMIS TRY ORDERABLES Performing Organization Address City/[facility] Co de Phone Number [facility] ACCOUNT BILL * FERRITIN (10/07/2013 10:32 AM SCHOOL TRANSPORTATION SUPERVISOR) Ferritin 23 15 - 150 ng/mL [facility] ACCOUNT BILL Blood specimen (specimen) BLOOD SPECIMEN / Unknown 10/07/2013 10:32 AM SCHOOL TRANSPORTATION SUPERVISOR 10/07/2013 3:16 PM SCHOOL TRANSPORTATION SUPERVISOR Narrative Resulting Agency Comment [facility] [address] [facility] [phone] Ani Szymanski APRN-SMUDGER LAB - CHEMIS TRY ORDERABLES Performing Organization Address City/[facility] Co de Phone Number [facility] ACCOUNT BILL * (ABNORMAL) GLUCOSE - POINT OF CARE (03/21/2013 12:25 PM CDT) Only the most recent of3 resultswithin the time period is included. Blood specimen (specimen) BLOOD SPECIMEN / Unknown 03/21/2013 12:25 PM CDT 03/21/2013 12:31 PM CDT Arben Jhaveri MD LAB - POINT OF CARE ORDERABLES [facility] [address] [place] [address] * FL FLUORO UPPER GI TRACT + KUB (03/21/2013 11:25 AM CDT) Anatomical Region Laterality Modality Abdomen Radiographic Stefani ging 03/21/2013 11:4 8 AM CDT Narrative 03/21/2013 11:48 AM CDT Examination: Gastrografin upper GI. Indication for examination: Postop gastric bypass surgery. Abdominal pain. Preliminary psychotherapist counselor films demonstrate postsurgical change in the gastric [...] Postop gastric bypass surgery. Abdominal pain. Preliminary psychotherapist counselor films demonstrate postsurgical change in the gastric [...] - 106 mg/dL 03/21/2013 4:24 AM CDT [facility] Sodium 134(L) 136 - 145 mmol/L 03/21/2013 4:24 AM CDT [facility] Potassium 4.0 3.5 - 5.1 mmol/L 03/21/2013 4:24 AM CDT [facility] Chloride 102 98 - 107 mmol/L 03/21/2013 4:24 AM CDT [facility] CO2 24 22 - 31 mmol/L 03/21/2013 4:24 AM CDT [facility] Calcium 8.0(L) 8.5 - 10.1 mg/dL 03/21/2013 4:24 AM CDT [facility] Anion Gap 8 5 - 15 mmol/L 03/21/2013 4:24 AM CDT [facility] BUN 8 7 - 21 mg/dL 03/21/2013 4:24 AM CDT [facility] Creatinine 0.61 0.50 - 1.30 mg/dL 03/21/2013 4:24 AM CDT [facility] eGFR by MDRD >60 >60 ml/min/1.7 3m2 03/21/2013 4:24 AM CDT [facility] eGFR by MDRD >60 >60 ml/min/1.7 3m2 03/21/2013 4:24 AM CDT [facility] Blood specimen (specimen) BLOOD SPECIMEN / Unknown 03/21/2013 3:57 AM CDT 03/21/2013 4:04 AM CDT Arben Jhaveri MD LAB - CHEMISTRY [facility] [address] [place] [address] * HCG URINE QUALITATIVE - POINT OF CARE (IP) (03/20/2013 12:06 PM CDT) HCG Qual Urine Negative Negative [facility] POCT TEST[facility] QC Verified Yes Yes [facility] POC T TESTING Urine specimen (specimen) URINE / Unknown 03/20/2013 12:06 PM CDT Arben Jhaveri MD LAB - POINT OF CARE ORDERABLES Performing Organization Address City/[facility]/ZIP Co de Phone Number [facility] [address] [place] [address] * (ABNORMAL) POTASSIUM BLOOD (03/20/2013 11:46 AM CDT) Potassium 3.3(L) 3.5 - 5.1 mmol/L 03/20/2013 12:15 PM CDT [facility] Blood specimen (specimen) BLOOD SPECIMEN / Unknown 03/20/2013 11:46 AM CDT 03/20/2013 11:50 AM CDT Arben Jhaveri MD LAB - CHEMISTRY SYLVAIN CANTU Performing Organization Address City/[facility] Co de Phone Number [facility] [address] [place] [address] * EKG 12-LEAD (03/14/2013 10:22 AM CDT) Ventricular Rate 58 BPM [facility] Atrial Rate 58 BPM [facility] P-R Interval 168 ms [facility] QRS Duration ms 84 ms [facility] Q-T Interval ms 418 ms [facility] QTC Calculation (Bezet) 410 ms [facility] Calculated P Friendship 59 degrees [facility] Calculated R Friendship 28 degrees [facility] Calculated T Friendship 61 degrees [facility] Interpretation EKG Sinus [...] PM CDT Arben Jhaveri MD ECG ORDERABLES [facility] Care Teams Armored Car Driver Relationship Specialty Start Date End Date Boston Benavides PA [address] [place] [address] PCP - General Physician Management Consulting 03/14/13
--- OUTSIDE RECORDS SUMMARY | 2024-12-02 11:25 | XMS_ITS | Clinical Summary ---
Author Organization [facility] Address [address] [place] [address] Phone Care Team Providers Care Lumber Piler Operator Name Role Phone Unavailable Primary Care Provider Unavailabl e Social History Tobacco Use Types Packs/Day Years Used Date Smoking Tobacco: Never Assessed Comments Unknown Sex and Gender Information Value Date Recorded Sex Assigned at Not on file Legal Sex Female 1:58 PM STRAP SETTER Gender Identity Not on file Sexual Orientation Not on file Plan of Treatment Not on file
--- OUTSIDE RECORDS SUMMARY | 2024-12-02 11:25 | XMS_ITS | Referral Summary ---
Author Organization [facility] [employer] Address [address] [place] [place] [address] Care Team Providers Care Security Controls Assessor Name Role Phone Boston Benavides Primary Care Provider [phone] Source Comments [facility] [employer],non-owned Affiliates and Associated Physician Practices is amultiple site organization consisting of ambulatory clinics and hospital sitesin [place], [place], [place] and [place]. This disclosure is being madepursuant to the Care Everywhere program and may not contain all information available regarding this patient. Last updated 18.[facility] [employer] Allergies Active Allergy Reactions Criticality Noted Date [...] COMPREHENSIVE METABOLIC PANEL Routine 10/07/2013 10:32 AM SUPERVISOR ROLLER PRINTING Obesity Bariatric surgery status Loss of weight Unspecified Intestinal Malabsorption (Hcc) Unspecified vitamin D deficiency Unspecified nutritional deficiency Unspecified vitamin deficiency Malnutrition of moderate degree (HCC) from Last 3 Months or Most Recently Relevant to Health Maintenance Results * COMPREHENSIVE METABOLIC PANEL (10/07/2013 10:32 AM SUPERVISOR ROLLER PRINTING) Glucose 86 65 - 99 mg/dL [facility] [...] BLOOD SPECIMEN / Unknown 10/07/2013 10:32 AM SUPERVISOR ROLLER PRINTING 10/07/2013 3:16 PM SUPERVISOR ROLLER PRINTING Narrative Resulting Agency Comment [facility] [address] [phone] Ani Szymanski FLOCCULATOR OPERATOR-CONTRACTING ANALYST LAB - CHEMIS TRY ORDERABLES [facility] ACCOUNT BILL from Last 3 Months or Most Recently Relevant to Health Maintenance Advance Directives * FULL RESUSCITATION (Latest Code Status on File) Date Activated Date Inactivated Comments 03/20/2013 8:17 PM 03/21/2013 5:04 PM Care Teams Security Controls Assessor Relationship Specialty Start Date End Date Boston Benavides PA [address] [place] [address] PCP - General Physician Disposal Operator 03/14/13
--- OUTSIDE RECORDS SUMMARY | 2024-12-02 11:25 | XMS_ITS | Referral Summary ---
Author Organization [facility] Address [address] [place] [id number] Care Team Providers Care Practice Managers Name Role Phone No, Physician Primary Care Provider [phone] Allergies Active Allergy Reactions Criticality Noted Date Comments Venom-Honey Bee Venom-Wasp Swelling Medium 05/04/2021 Medications ergocalciferol (VITAMIN D) 50,000 unit capsule ORAL 1 CAPSULE TWICE A WEEKLY WITH A LARGE MEAL 4 11/29/2018 Active EPINEPHrine syringe (ADRENALIN) 0.1 mg/mL injection Acti ve multivitamin capsule Take 1 capsule by mouth daily Active zinc 50 mg tablet Take by mouth Active vitamin X62-[id number] acid 0.5-1 mg tablet Take by mouth [...] 12/10/2018 Assessment & Plan (12/10/2018 9:41 AM C ENGINEER): Patient has a pattern of subclinical hyperthyroidism [...] scan Assessment & Plan (12/10/2018 9:40 AM C ENGINEER): -patient with thyroid ultrasound demonstrating multiple large [...] with PATTERSON Cyst of breast 10/27/2014 Immunizations Immunization Administration Dates Next Due Tdap 09/07/2019 Social [...] on file Legal Sex Female 11:49 PM C ENGINEER Gender Identity Not on file Sexual Orientation [...] Plan of Treatment Not on file Insurance [facility]/PPO Address: [address] [address] [place] [address] [facility] H[facility]/PPO Address: [address] [address] [place] [address] Care Teams Practice Managers Relationship Specialty Start Date End Date No, Physician PCP - General 04/15/20
--- OUTSIDE RECORDS SUMMARY | 2024-12-02 11:25 | XMS_ITS | Clinical Summary ---
Author Organization [facility] Address [address] [place] [phone] Care Team Providers Care Health Center Associate Name Role Phone No, Physician Primary Care Provider [phone] Allergies Active Allergy Reactions Criticality Noted Date Comments Venom-Honey Bee Venom-Wasp Swelling Medium 05/04/2021 Medications ergocalciferol (VITAMIN D) 50,000 unit capsule ORAL 1 CAPSULE TWICE A WEEKLY WITH A LARGE MEAL 4 11/29/2018 Active EPINEPHrine syringe (ADRENALIN) 0.1 mg/mL injection Acti ve multivitamin capsule Take 1 capsule by mouth daily Active zinc 50 mg tablet Take by mouth Active vitamin U45-vsbyb acid 0.5-1 mg tablet Take by mouth [...] 12/10/2018 Assessment & Plan (12/10/2018 9:41 AM COMPLAINT INVESTIGATIONS OFFICER): Patient has a pattern of subclinical hyperthyroidism [...] scan Assessment & Plan (12/10/2018 9:40 AM COMPLAINT INVESTIGATIONS OFFICER): -patient with thyroid ultrasound demonstrating multiple large [...] Immunization Administration Dates Next Due Tdap 09/07/2019 Surgical [...] on file Legal Sex Female 11:49 PM COMPLAINT INVESTIGATIONS OFFICER Gender Identity Not on file Sexual Orientation [...] Plan of Treatment Not on file Insurance CHOICE PLUS Care Teams Health Center Associate Relationship Specialty Start Date End Date No, Physician PCP - General 04/15/20
--- OUTSIDE RECORDS SUMMARY | 2024-12-02 11:25 | XMS_ITS | Clinical Summary ---
Author Organization [facility] Address [address] [place] [address] Care Team Providers Care Conveyor Mechanic Name Role Phone Boston Benavides Primary Care Provider [phone] [facility],non-owned Affiliates and Associated Physician Practices is amultiple site organization consisting of ambulatory clinics and hospital sitesin [place], [place], [place] and [place]. This disclosure is being madepursuant to the Care Everywhere program and may not contain all information available regarding this patient. Last updated 18.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 Obesity Bariatric surgery status Loss of weight Unspecified Intestinal Malabsorption (Hcc) Unspecified vitamin D deficiency Unspecified nutritional deficiency Unspecified vitamin deficiency Malnutrition of moderate degree (HCC) from Last 3 Months or Most Recently Relevant to Health Maintenance Results * COMPREHENSIVE METABOLIC PANEL (10/07/2013 10:32 AM GRASS FARMER) Glucose 86 65 - 99 mg/dL [facility] [...] BLOOD SPECIMEN / Unknown 10/07/2013 10:32 AM GRASS FARMER 10/07/2013 3:16 PM GRASS FARMER Narrative Resulting Agency Comment [facility] [address] [id number] Ani Szymanski INTERNET SECURITY SPECIALIST-TABLE GAMES DUAL RATE SUPERVISOR LAB - CHEMIS TRY ORDERABLES [facility] ACCOUNT BILL from Last 3 Months or Most Recently Relevant to Health Maintenance Advance Directives * FULL RESUSCITATION (Latest Code Status on File) Date Activated Date Inactivated Comments 03/20/2013 8:17 PM 03/21/2013 5:04 PM Care Teams Conveyor Mechanic Relationship Specialty Start Date End Date Boston Benavides PA [address] [place] [address] PCP - General Physician Construction Job Titles 03/14/13
== END 2024-12-02 08:32 | disposition home or self-care (01) ==
LOC: CHSIMG 08:33
PROVIDERS: Visit Provider Obstetrics & Gynecology Gynecology
DX: R92.8 Other abnormal and inconclusive findings on diagnostic imaging of breast (principal)
CPT/HCPCS: 76641; 77061; 77065; G0279

== ENCOUNTER 2025-05-14 06:55 | Outpatient (CLI) | payer OTHER, SELFPAY ==
--- NOTE | ~2025-05-14 | US_ITS ---
US thyroid INDICATION: Follow-up thyroid nodules TECHNIQUE: Real-time sonographic images of the thyroid gland were obtained. COMPARISON: Ultrasound dated 10/31/2022 FINDINGS: The right thyroid lobe measures 5 x 3 x 2.4 cm. The left thyroid lobe measures 5.6 x 2.2 x 2 cm. There are multiple nodules in the right lobe, largest measuring 2.6 x 1.8 x 1.8 cm. This mass is solid, hypoechoic, wider than tall, smooth margins without echogenic foci, TR 4. This mass is not significantly changed compared with prior examination. In the left lobe there is a 1.9 x 1.4 x 1.4 cm solid, slightly hyperechoic wider than tall, smoothly marginated mass with internal echogenic foci, TR 4, without significant interval change. Normal vascular flow is present. IMPRESSION: 1. Stable bilateral thyroid masses allowing for differences of technique, compatible with benign mul tinodular goiter. Recommend follow-up ultrasound in 12 months. Reviewed, dictated and finalized at location A. IMPRESSION: 1. Stable bilateral thyroid masses allowing for differences of technique, comp atible with benign multinodular goiter. Recommend follow-up ultrasound in 12 mo nths.
--- OUTSIDE RECORDS SUMMARY | 2025-05-14 07:03 | XMS_ITS | Clinical Summary ---
Author Organization [facility] Address [address] [place] [phone] Care Team Providers Care Magazine Publisher Name Role Phone No, Physician Primary Care Provider [phone] Allergies Active Allergy Reactions Criticality Noted Date Comments Venom-Honey Bee Venom-Wasp Swelling Medium 05/04/2021 Medications ergocalciferol (VITAMIN D) 50,000 unit capsule ORAL 1 CAPSULE TWICE A WEEKLY WITH A LARGE MEAL 4 11/29/2018 Active EPINEPHrine syringe (ADRENALIN) 0.1 mg/mL injection Acti ve multivitamin capsule Take 1 capsule by mouth daily Active zinc 50 mg tablet Take by mouth Active vitamin B49-ktawe acid 0.5-1 mg tablet Take by mouth [...] 12/10/2018 Assessment & Plan (12/10/2018 9:41 AM RN TRANSPLANT): Patient has a pattern of subclinical hyperthyroidism [...] scan Assessment & Plan (12/10/2018 9:40 AM RN TRANSPLANT): -patient with thyroid ultrasound demonstrating multiple large [...] STOMACH SURGERY Gastric Surgery - (Added by TW Conv) Medical History Medical History Date Comments Hx Other Medical Headache, migra ine Hypertension Hypertension Personal history of other sp ecified conditions History of breast lump - (Ad ded by TW Conv) Family History * Patient is adopted [...] on file Legal Sex Female 11:49 PM RN TRANSPLANT Gender Identity Not on file Sexual Orientation [...] 12:29 PM CDT Height 160 cm (5' 3) 05/14/2021 12:29 PM CDT Body Mass Index 30.29 05/14/2021 12:29 PM CDT Plan of Treatment Not on file Insurance CHOICE PLUS CHOICE PLUS Care Teams Magazine Publisher Relationship Specialty Start Date End Date No, Physician PCP - General 04/15/20
--- OUTSIDE RECORDS SUMMARY | 2025-05-14 07:03 | XMS_ITS | Clinical Summary ---
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
--- OUTSIDE RECORDS SUMMARY | 2025-05-14 07:03 | XMS_ITS | Referral Summary ---
Author Organization [facility] Address [address] [place] [phone] Care Team Providers Care Photographic Plate Maker Name Role Phone No, Physician Primary Care Provider [phone] Allergies Active Allergy Reactions Criticality Noted Date Comments Venom-Honey Bee Venom-Wasp Swelling Medium 05/04/2021 Medications ergocalciferol (VITAMIN D) 50,000 unit capsule ORAL 1 CAPSULE TWICE A WEEKLY WITH A LARGE MEAL 4 11/29/2018 Active EPINEPHrine syringe (ADRENALIN) 0.1 mg/mL injection Acti ve multivitamin capsule Take 1 capsule by mouth daily Active zinc 50 mg tablet Take by mouth Active vitamin U33-vjqqm acid 0.5-1 mg tablet Take by mouth [...] 12/10/2018 Assessment & Plan (12/10/2018 9:41 AM OXYHYDROGEN WELDER): Patient has a pattern of subclinical hyperthyroidism [...] scan Assessment & Plan (12/10/2018 9:40 AM OXYHYDROGEN WELDER): -patient with thyroid ultrasound demonstrating multiple large [...] on file Legal Sex Female 11:49 PM OXYHYDROGEN WELDER Gender Identity Not on file Sexual Orientation [...] Plan of Treatment Not on file Insurance [facility] CHOICE PLUS Care Teams Photographic Plate Maker Relationship Specialty Start Date End Date No, Physician PCP - General 04/15/20
--- OUTSIDE RECORDS SUMMARY | 2025-05-14 07:03 | XMS_ITS | Clinical Summary ---
Author Organization [facility] Address [address] [facility] [place] [address] Care Team Providers Care Textile Engraver Name Role Phone oBston Benavides Primary Care Provider [phone] Source Comments [facility],non-owned Affiliates and Associated Physician Practices is amultiple site organization consisting of ambulatory clinics and hospital sitesin [place], [place], [place] and [place]. This disclosure is being madepursuant to the Care Everywhere program and may not contain all information available regarding this patient. Last updated 18.[facility] Allergies Active Allergy Reactions Criticality Noted Date Comments Other Swelling High 01/14/2013 Bee sting-carries epi pen Medications * Be aware that medications may not be up to date on this document. Alwaysverify current medications with the patient. vitamin D, cholecalciferol, 2000 UNITS tablet Take 2,000 Units by mouth once daily Active B Complex Vitamins (VITAMIN-B COMPLEX PO) Active OtherIndications :eye suppletment OTC Reasons: eye suppletment OTC Active Active Problems No known active problems Social History Tobacco Use Types Packs/Day Years Used Date Smoking Tobacco: Never Smokeless Tobacco: Never Alcohol Use Standard Drinks/Week Comments Yes 0 (1 standard drink = 0.6 oz pur e alcohol) SOCIAL/RARE Comments No Sex and Gender Information Value Date Recorded Sex Assigned at Not on file Legal Sex Female 10:10 AM CDT Gender Identity Not on file Sexual Orientation [...] 10:13 AM CDT Height 157.5 cm (5' 2) 05/14/2019 10:13 AM CDT Body Mass Index [...] SCREENING 1961 LIPID TESTING 1961 MAMMOGRAM 1961 HIV SCREENING 1976 HEPATITIS C SCREENING 11/11/1979 DTAP/TDAP/TD VACCINES (1 - Tdap) 1980 PNEUMOCOCCAL VACCINE 50+ (1 of 1 - PCV) 2011 ZOSTER VACCINE (1 of 2) 2011 SCREENING FOR DIABETES 06/06/2018 3, 03/21/2013, 03/21/2013, Additional history exists COVID-19 VACCINE ( - 2023- season) 2024 DEPRESSION SCREENING 10/16/2024 INFLUENZA VACCINE (#1) 2025 Respiratory Syncytial Virus (RSV) Vaccine Pt: or [...] complete this topic MENINGOCOCCAL (Group B) VACCINE SHARED DECISION-MAKING Aged Out No longer eligible based on patient's age to complete this topic MENINGOCOCCAL GROUPS A/C/Y/W VACCINE Aged Out No longer eligible based on patient's age to complete this topic Procedures Procedure Name Priority Date/Time Associated Diagnosis Comments COMPREHENSIVE METABOLIC PANEL Routine 10/07/2013 10:32 AM BUSINESS LINE CONTROLLER Obesity Bariatric surgery status Loss of weight Unspecified Intestinal Malabsorption Unspecified vitamin D deficiency Unspecified nutritional deficiency Unspecified vitamin deficiency Malnutrition of moderate degree from Last 3 Months or Most Recently Relevant to Health Maintenance Results * COMPREHENSIVE METABOLIC PANEL (10/07/2013 10:32 AM BUSINESS LINE CONTROLLER) Glucose 86 65 - 99 mg/dL [facility] [...] BLOOD SPECIMEN / Unknown 10/07/2013 10:32 AM BUSINESS LINE CONTROLLER 10/07/2013 3:16 PM BUSINESS LINE CONTROLLER Narrative Resulting Agency Comment [facility] [address] [id number] [place] Ani Szymanski ELECTRICAL CAD TECHNICIAN-RECLAMATION SUPERVISOR LAB - CHEMISTRY SYLVAIN CANTU Final Result [facility] ACCOUNT [place] [address] [place] [phone] from Last 3 Months or Most Recently Relevant to Health Maintenance Insurance [facility] Advance Directives * FULL RESUSCITATION (Latest Code Status on File) Date Activated Date Inactivated Comments 03/20/2013 8:17 PM 03/21/2013 5:04 PM Care Teams Textile Engraver Relationship Specialty Start Date End Date Boston Benavides PA [address] [place] [address] PCP - General Physician Territory Manager General Sales 03/14/13
[2025-05-14 07:19] LABS: Hematocrit 41.4 % (35.0-49.0); Hemoglobin 12.7 g/dL (12.0-15.0); Mean Corpuscular HGB Conc 30.7 g/dL (32-36); Mean Corpuscular Hemoglobin 25.0 pg (27.0-31.0); Mean Corpuscular Volume 81.5 fL (78.0-102.0); Platelet Count Result 266 K/mm3 (150-420); Red Blood Count 5.08 M/mm3 (4.20-5.40); White Blood Count 5.1 K/mm3 (4.8-10.8)
[2025-05-14 07:57] LABS: Hemoglobin A1C 5.2 % (<5.7)
[2025-05-14 08:06] LABS: Alanine Aminotransferase 15 U/L (6-35); Albumin Level 4.1 g/dL (3.5-5.1); Alkaline Phosphatase 79 U/L (38-126); Anion Gap 4 mmol/L (4-12); Aspartate Amino Transferase 27 U/L (14-36); Bilirubin,Total 0.5 mg/dL (0.2-1.3); Blood Urea Nitrogen 14 mg/dL (7-17); Calcium 9.2 mg/dL (8.4-10.2); Carbon Dioxide 29 mmol/L (22-30); Chloride 107 mmol/L (98-107); Cholesterol 170 mg/dL (0-200); Estimated Glomerular Filt Rate > 60; Glucose 87 mg/dL (65-110); HDL Direct 74 mg/dL; Osmolality Calculated 289 mOsm/kg (285-295); Potassium 4.4 mmol/L (3.4-5.0); Sodium 140 mmol/L (137-145); Total Protein 6.4 g/dL (6.3-8.2); Triglycerides 65 mg/dL (<150)
[2025-05-14 08:22] LABS: Free T4 Free Thyroxine 1.08 ng/dL (0.78-2.19)
[2025-05-14 08:36] LABS: Thyroid Stimulating Hormone 1.380 uIU/mL (0.465-4.680)
[2025-05-14 08:55] LABS: Vitamin B12 522.0 pg/mL (239-931)
== END 2025-05-14 06:56 | disposition home or self-care (01) ==
LOC: CHSIMG 07:00
PROVIDERS: Visit Provider Obstetrics & Gynecology Gynecology
DX: E07.9 Disorder of thyroid, unspecified (principal); E55.9 Vitamin D deficiency, unspecified; Z13.1 Encounter for screening for diabetes mellitus; Z13.0 Encounter for screening for diseases of the blood and blood-forming organs and certain disorders involving the immune mechanism; Z13.220 Encounter for screening for lipoid disorders
CPT/HCPCS: 36415; 76536; 80053; 80061; 82306; 82607; 83036; 84439; 84443; 85027

== ENCOUNTER 2025-07-07 08:43 | Outpatient (CLI) | payer OTHER, SELFPAY ==
--- NOTE | ~2025-07-07 | MM_ITS ---
EXAMINATION: MM diagnostic pooja RT w ingrid INDICATION: 64-year old female; 6 month follow up focal asymmetry in the right breast with no sonographic correlate, initially evaluated on 12/02/2024. COMPARISON: 12/02/2024 through 01/18/2020. TECHNIQUE: Right breast Digital breast tomosynthesis ML, spot compression in CC and MLO views were obtained with computer-aided detection to assist in interpretation of the study. FINDINGS: There are scattered areas of fibroglandular density. The focal asymmetry of concern in the Medial right breast at middle third did not persist on spot compression views. This is compatible with superimposition of fibroglandular tissue. No other focal dominant mass, architectural distortion, or suspicious microcalcifications are identified. IMPRESSION: Benign mammogram. No evidence of malignancy in right breast. RECOMMEND: Routine screening bilateral mammography in 6 months. BI-RADS 2, BENIGN Reviewed, dictated and finalized at location C.
--- OUTSIDE RECORDS SUMMARY | 2025-07-07 09:25 | XMS_ITS | Clinical Summary ---
Author Organization [facility] Address [address] [place] [address] Phone Care Team Providers Care Drywall Stripper Helper Name Role Phone Unavailable Primary Care Provider Unavailabl e Social History Tobacco Use Types Packs/Day Years Used Date Smoking Tobacco: Never Assessed Comments Unknown Sex and Gender Information Value Date Recorded Sex Assigned at Not on file Legal Sex Female 1:58 PM CHEMICAL STRENGTH TESTER Gender Identity Not on file Sexual Orientation Not on file Plan of Treatment Not on file
--- OUTSIDE RECORDS SUMMARY | 2025-07-07 09:25 | XMS_ITS | Clinical Summary ---
Author Organization [facility] Address [address] [place] [address] Care Team Providers Care Stone Driller Helper Name Role Phone Boston Benavides Primary Care Provider [phone] Source Comments [facility],non-owned Affiliates and Associated Physician Practices is amultiple site organization consisting of ambulatory clinics and hospital sitesin [place], [place], [place] and [place]. This disclosure is being madepursuant to the Care Everywhere program and may not contain all information available regarding this patient. Last updated 18.[facility] Allergies Active Allergy Reactions Criticality Noted Date [...] 06/06/2018 3, 03/21/2013, 03/21/2013, Additional history exists DEPRESSION SCREENING 10/16/2024 COVID-19 VACCINE ( season) 2025 INFLUENZA VACCINE (#1) 2025 Respiratory Syncytial Virus [...] COMPREHENSIVE METABOLIC PANEL Routine 10/07/2013 10:32 AM WAREHOUSE UNLOADER Obesity Bariatric surgery status Loss of weight Unspecified Intestinal Malabsorption Unspecified vitamin D deficiency Unspecified nutritional deficiency Unspecified vitamin deficiency Malnutrition of moderate degree from Last 3 Months or Most Recently Relevant to Health Maintenance Results * COMPREHENSIVE METABOLIC PANEL (10/07/2013 10:32 AM WAREHOUSE UNLOADER) Glucose 86 65 - 99 mg/dL [facility] [...] BLOOD SPECIMEN / Unknown 10/07/2013 10:32 AM WAREHOUSE UNLOADER 10/07/2013 3:16 PM WAREHOUSE UNLOADER Narrative Resulting Agency Comment [facility] [address] [id number] [place] Ani Szymanski PLATFORM ENGINEER-ACID ETCH OPERATOR LAB - CHEMISTRY SYLVAIN CANTU Final Result [facility] ACCOUNT BILL [address] [place] [phone] from Last 3 Months or Most Recently Relevant to Health Maintenance Insurance [facility] Advance Directives * FULL RESUSCITATION (Latest Code Status on File) Date Activated Date Inactivated Comments 03/20/2013 8:17 PM 03/21/2013 5:04 PM Care Teams Stone Driller Helper Relationship Specialty Start Date End Date Boston Benavides PA [address] [place] [address] PCP - General Physician Quarryman 03/14/13
== END 2025-07-07 08:44 | disposition home or self-care (01) ==
LOC: CHSIMG 08:46
PROVIDERS: Visit Provider Obstetrics & Gynecology Gynecology
DX: R92.8 Other abnormal and inconclusive findings on diagnostic imaging of breast (principal)
CPT/HCPCS: 77061; 77065; G0279